=== PATIENT | female | born 1985 | race Hispanic/Latino ===

== ENCOUNTER 2019-11-08 20:46 | Inpatient (IN) | payer BC, OTHER ==
[~2019-11-08] VITALS: Ht 172.7 cm; Wt 90.7 kg
--- OUTSIDE RECORDS SUMMARY | 2019-11-08 20:49 | XMS REPORT ---
Author [facility] Address Unknown Phone Unavailable Care Team Providers Care Mat Gauger Name Role Phone Unavailable Unavailable Payers Payer Name Policy Type Policy Number Effective Date Expiration Date Problems This patient has no known problems. Allergies, Adverse Reactions, Alerts Allergy Name Allergy Type Status Severity Reaction(s) Onset Date Inactive Date Treating Clinician Comments No Known Allergies DA Active U 2015-01-13 00:00:00 Medications This patient has no known medications. Results Test Description Test Time Test Comments Text Results Atomic Results Result Comments BASIC METABOLIC PANEL 2019-11-04 10:26:00 SODIUM (test code=NA) 138 mmol/L 135-148 POTASSIUM (test code=K) 3.8 mmol/L 3.5-5.1 CHLORIDE (test code=CL) 100 mmol/L 101-109 CARBON DIOXIDE (test code=CO2) 23.5 mmol/L 21-32 ANION GAP (test code=GAP) 18 mmol/L 10-20 GLUCOSE (test code=GLU) 107 mg/dL 74-106 BLOOD UREA NITROGEN (test code=BUN) 11 mg/dL 3-21 GLOMERULAR FILTRATION RATE (test code=GFR) > 60 mL/min >=60 Estimated GFR by using Modified MDRD formula.Chronic kidney disease is defined as either kidney damageor GFR <60 mL/min/1.73 m2 for >3 months. CREATININE (test code=CREAT) 0.92 mg/dL 0.55-1.3 BUN/CREATININE RATIO (test code=BUN/CREA) 12.0 10-20 CALCIUM (test code=CA) 9.4 mg/dL 8.4-10.2 HEPATIC FUNCTION [id number] 10:26:00* Test Item Value Reference Range Comments TOTAL PROTEIN (test code=PROT) 7.8 g/dL 6.5-8.4 ALBUMIN (test code=ALB) 3.6 g/dL 3.4-4.8 GLOBULIN (test code=GLOB) 4.2 G/DL 1-10 ALBUMIN/GLOBULIN RATIO (test code=A/G) 0.9 RATIO 0.75-1.50 BILIRUBIN TOTAL (test code=BILT) 0.40 mg/dL 0.0-1.0 BILIRUBIN DIRECT (test code=BILD) 0.10 mg/dL 0.0-0.30 SGOT/AST (test code=AST) 51 U/L 6-32 SGPT/ALT (test code=ALT) 100 U/L 12-78 Note: Change in REFERENCE RANGE due to new reagent method. ALKALINE PHOSPHATASE TOTAL (test code=ALKP) 81 U/L 38-126 HCG SERUM [id number] 10:26:00* Test Item Value Reference Range Comments HCG SERUM QUAL (test code=HCGQL) NEGATIVE NEGATIVE This HCGQL test is NOT applicable for MALE patients.Check with nurse about probable order error.If Tumor Marker Test needed, nurse should order test "HCGTU"(Test #550.71903) [id number] 10:26:00* Test Item Value Reference Range Comments TROPONIN-I (test code=TROPI) <0.015 ng/mL 0.00-0.056 LACTIC [id number] 10:26:00* Test Item Value Reference Range Comments LACTIC ACID (test code=LACT) 1.0 MMOL/L 0.4-1.9 BASIC METABOLIC [id number] 10:25:00* Test Item Value Reference Range Comments SODIUM (test code=NA) 138 mmol/L 135-148 POTASSIUM (test code=K) 3.8 mmol/L 3.5-5.1 CHLORIDE (test code=CL) 100 mmol/L 101-109 CARBON DIOXIDE (test code=CO2) 23.5 mmol/L 21-32 ANION GAP (test code=GAP) 18 mmol/L 10-20 GLUCOSE (test code=GLU) 107 mg/dL 74-106 BLOOD UREA NITROGEN (test code=BUN) 11 mg/dL 3-21 GLOMERULAR FILTRATION RATE (test code=GFR) > 60 mL/min >=60 Estimated GFR by using Modified MDRD formula.Chronic kidney disease is defined as either kidney damageor GFR <60 mL/min/1.73 m2 for >3 months. CREATININE (test code=CREAT) 0.92 mg/dL 0.55-1.3 BUN/CREATININE RATIO (test code=BUN/CREA) 12.0 10-20 CALCIUM (test code=CA) 9.4 mg/dL 8.4-10.2 HEPATIC FUNCTION [id number] 10:25:00* Test Item Value Reference Range Comments TOTAL PROTEIN (test code=PROT) gram/dL 6.4-8.2 ALBUMIN (test code=ALB) g/dL 3.4-5.0 GLOBULIN (test code=GLOB) g/dL 2.7-4.2 ALBUMIN/GLOBULIN RATIO (test code=A/G) 0.75-1.50 BILIRUBIN TOTAL (test code=BILT) mg/dL 0.2-1.2 BILIRUBIN DIRECT (test code=BILD) mg/dL 0.0-0.20 SGOT/AST (test code=AST) IUnit/L 15-37 SGPT/ALT (test code=ALT) U/L 10-69 ALKALINE PHOSPHATASE TOTAL (test code=ALKP) IUnit/L 45-117 HCG SERUM [id number] 10:25:00* Test Item Value Reference Range Comments HCG SERUM QUAL (test code=HCGQL) NEGATIVE NEGATIVE This HCGQL test is NOT applicable for MALE patients.Check with nurse about probable order error.If Tumor Marker Test needed, nurse should order test "HCGTU"(Test #550.79374) [id number] 10:25:00* Test Item Value Reference Range Comments TROPONIN-I (test code=TROPI) ng/mL 0-0.045 BASIC METABOLIC [id number] 10:23:00* Test Item Value Reference Range Comments SODIUM (test code=NA) mmol/L 135-148 POTASSIUM (test code=K) mmol/L 3.5-5.1 CHLORIDE (test code=CL) mmol/L 101-109 CARBON DIOXIDE (test code=CO2) mmol/L 21-32 ANION GAP (test code=GAP) mmol/L 10-20 GLUCOSE (test code=GLU) mg/dL 74-106 BLOOD UREA NITROGEN (test code=BUN) mg/dL 3-21 GLOMERULAR FILTRATION RATE (test code=GFR) mL/min >=60 CREATININE (test code=CREAT) mg/dL 0.55-1.3 BUN/CREATININE RATIO (test code=BUN/CREA) 10-20 CALCIUM (test code=CA) mg/dL 8.4-10.2 HEPATIC FUNCTION [id number] 10:23:00* Test Item Value Reference Range Comments TOTAL PROTEIN (test code=PROT) gram/dL 6.4-8.2 ALBUMIN (test code=ALB) g/dL 3.4-5.0 GLOBULIN (test code=GLOB) g/dL 2.7-4.2 ALBUMIN/GLOBULIN RATIO (test code=A/G) 0.75-1.50 BILIRUBIN TOTAL (test code=BILT) mg/dL 0.2-1.2 BILIRUBIN DIRECT (test code=BILD) mg/dL 0.0-0.20 SGOT/AST (test code=AST) IUnit/L 15-37 SGPT/ALT (test code=ALT) U/L 10-69 ALKALINE PHOSPHATASE TOTAL (test code=ALKP) IUnit/L 45-117 HCG SERUM [id number] 10:23:00* Test Item Value Reference Range Comments HCG SERUM QUAL (test code=HCGQL) NEGATIVE NEGATIVE This HCGQL test is NOT applicable for MALE patients.Check with nurse about probable order error.If Tumor Marker Test needed, nurse should order test "HCGTU"(Test #550.94532) [id number] 10:23:00* Test Item Value Reference Range Comments TROPONIN-I (test code=TROPI) ng/mL 0-0.045 CBC W/AUTO [id number] 10:14:00* Test Item Value Reference Range Comments WHITE BLOOD CELL (test code=WBC) 4.6 K/mm3 4.5-12.5 RED BLOOD CELL (test code=RBC) 4.70 mill/mm3 3.7-5.2 HEMOGLOBIN (test code=HGB) 13.9 gram/dL 11.5-15.5 HEMATOCRIT (test code=HCT) 41.7 % 36.0-46.0 MEAN CELL VOLUME (test code=MCV) 88.7 fL 80-98 MEAN CELL HGB (test code=MCH) 29.6 picogram 27.0-33.0 MEAN CELL HGB CONCETRATION (test code=MCHC) 33.3 gram/dL 33.0-36.0 RED CELL DISTRIBUTION WIDTH (test code=RDW) 12.7 % 11.6-16.2 RED CELL DISTRIBUTION WIDTH SD (test code=RDW-SD) 42.3 fL 37.0-51.0 PLATELET COUNT (test code=PLT) 202 K/mm3 150-450 MEAN PLATELET VOLUME (test code=MPV) 10.0 fL 6.7-11.0 NEUTROPHIL % (test code=NT%) 75.7 % 39.0-69.0 LYMPHOCYTE % (test code=LY%) 15.6 % 25.0-55.0 MONOCYTE % (test code=MO%) 8.1 % 0.0-10.0 EOSINOPHIL % (test code=EO%) 0.2 % 0.0-5.0 BASOPHIL % (test code=BA%) 0.2 % 0.0-1.0 NEUTROPHIL # (test code=NT#) 3.45 K/mm3 1.8-7.7 LYMPHOCYTE # (test code=LY#) 0.71 K/mm3 1.0-5.0 MONOCYTE # (test code=MO#) 0.37 K/mm3 0-0.8 EOSINOPHIL # (test code=EO#) 0.01 K/mm3 0.0-0.5 BASOPHIL # (test code=BA#) 0.01 K/mm3 0.0-0.2 - XR CHEST 1 [id number] 10:02:00 Name: ALIX BLANCHARD [facility] : 1985 Age/S:34 /F [address] [facility] Unit#:[id number] Loc: [place] [address] Phys: Azalia Moser MD Dis Date: PHONE #: [phone] Status: REG ER FAX #: [phone] Exam Date: 11/04/2019 Reason: cough EXAMS: CPT CODE: [id number] XR CHEST 1 V 13521 HISTORY: cough TECHNIQUE: AP chest x-ray COMPARISON: 11/08/14 FINDINGS: No airspace consolidation or pleural effusion. Normal heart size. Mediastinal silhouette is unremarkable. Visualized osseous structures are grossly intact. IMPRESSION: No radiographic evidence of acute cardiopulmonary process. LOCATION: LP at 1002 Reported and signed by: Linda Townsend CC: Ama Mtz MD; Azalia Moser MD Technologist: Shivani Doty Trnscrpt Data: 11/04/2019 (1002) [email or web address] Orig Print D/T: S: (100) PAGE 1 Signed Rep ort
[2019-11-08] MEDS ORDERED: SODIUM CHLORIDE 0.9% 1000ML 1,000 ML IV STA (21:10)
[2019-11-08] MEDS ORDERED: PIPER-TAZ 3.375 GM 50 ML IV STA (21:10)
[2019-11-08] MEDS ORDERED: ACETAMINOPHEN 325 MG TAB PO ONE (21:15)
[2019-11-08] MEDS ORDERED: SODIUM CHLORIDE 0.9% 1000ML 1,000 ML IV ONE (21:30)
[2019-11-08 21:32] LABS: BASOPHILS % 0.3 % (0.0-1.0); HEMATOCRIT 38.6 % (34.2-44.1); HEMOGLOBIN 12.7 g/dL (12.0-16.0); LYMPHOCYTES # (AUTO) 0.5 (1.0-3.2); LYMPHOCYTES % 15.1 % (18.0-39.1); MEAN CORPUSCULAR HEMOGLOBIN 29.1 pg (28-32); MEAN CORPUSCULAR HGB CONC 32.9 g/dL (31-35); MEAN CORPUSCULAR VOLUME 88.3 fL (81-99); MONOCYTES # (AUTO) 0.1 (0.2-0.8); MONOCYTES % 4.1 % (4.4-11.3); NEUTROPHILS # (AUTO) 2.7 (2.1-6.9); NEUTROPHILS % 79.6 % (38.7-80.0); PLATELET COUNT 81 x10e3/uL (140-360); RED BLOOD COUNT 4.37 x10e6/uL (3.6-5.1); RED CELL DISTRIBUTION WIDTH 12.9 % (11.7-14.4)
[2019-11-08] MEDS ORDERED: SODIUM CHLORIDE 0.9% 1000ML 1,000 ML ONE (21:35)
[2019-11-08 21:53] LABS: ALANINE AMINOTRANSFERASE 258 IU/L (0-55); ALBUMIN 3.1 g/dL (3.5-5.0); ALBUMIN/GLOBULIN RATIO 0.9 (0.8-2.0); ALKALINE PHOSPHATASE 237 IU/L (40-150); ANION GAP 13.4 mmol/L (8-16); BLOOD UREA NITROGEN 12 mg/dL (7-26); BUN/CREATININE RATIO 15 (6-25); CALCIUM 8.8 mg/dL (8.4-10.2); CARBON DIOXIDE 25 mmol/L (22-29); CHLORIDE 103 mmol/L (98-107); CREATININE, SERUM 0.79 mg/dL (0.57-1.11); EST GLOMERULAR FILTRATION RATE > 60 ML/MIN (60-); GLUCOSE 127 mg/dL (74-118); POTASSIUM 3.4 mmol/L (3.5-5.1); SODIUM 138 mmol/L (136-145)
[2019-11-08 21:55] LABS: STREPTOCOCCUS GRP A ANTIGEN NEGATIVE (NEGATIVE)
[2019-11-08 22:09] LABS: INFLUENZAE A&B ANTIGEN (RAPID) NEGATIVE (NEGATIVE)
[2019-11-08 22:50] LABS: CLARITY,URINE CLOUDY (CLEAR); COLOR,URINE ORANGE (YELLOW); LEUKOCYTE ESTERASE ,URINE NEGATIVE (NEGATIVE); NITRITE,URINE NEGATIVE (NEGATIVE); PREGNANCY TEST, URINE NEGATIVE (NEGATIVE)
[2019-11-08 22:51] LABS: BILIRUBIN,URINE 3+ (NEGATIVE); KETONES,URINE NEGATIVE (NEGATIVE); PROTEIN,URINE DIPSTICK >=300 (NEGATIVE)
[2019-11-09 00:01] LABS: BACTERIA,URINE MANY /HPF; EPITHELIAL CELLS,URINE FEW /LPF; RENAL EPITHELIAL CELLS,URINE FEW; TRANSITIONAL EPI CELLS,URINE FEW; WBC,URINE (MAN) 21-50 /HPF (0-5)
--- NOTE | 2019-11-09 00:43 | Diagnostic Imaging Report ---
CT chest, abdomen and pelvis with intravenous contrast Indication: Fever, bodyaches, elevated liver enzymes, dark urine, ^cough Technique: Thin collimation axial images obtained from the thoracic inlet to the level of the pubic symphysis following the uneventful administration of 100 cc of low osmolar, nonionic intravenous contrast. RADIATION DOSE: Total DLP: 952.74 mGy*cm Estimated effective dose: (DLP x 0.015 x size factor) mSv CTDIvol has been reviewed. It is below the limits set by the Radiation Protocol Committee (RPC). Dose reduction techniques used: Automated exposure control, adjustment of the mAs and/or kVp according to patient size, standardized low-dose protocol, and/or iterative reconstruction technique. Comparison: None. CHEST FINDINGS: Lymph nodes: No enlarged axillary, supraclavicular lymph nodes. Right hilar lymph nodes are increased in number and mildly prominent, measuring up to 9 mm. No enlarged left hilar subcarinal lymph nodes. Thyroid: Visualized portions are normal. Mediastinum: No pericardial effusion. Heart and great vessels enhance normally without filling defects. The esophagus is normal. Lungs: Right Lung: Nodule or focus of infiltrate in the superior segment of the lower lobe measures 9 mm. Small focus of subsegmental atelectasis in the posterior costophrenic angle. Left Lung: Subsegmental atelectasis in the base adjacent to the diaphragm. Small amount of subsegmental atelectasis in the posterior costophrenic angle Pleura: Trace effusion the left posterior costophrenic angle. Airways: Clear. ABDOMEN FINDINGS: Liver: Normal attenuation. Focal fat deposition along the falciform ligament. Gallbladder: Present and contains a lamellated gallstone measuring 2.7 cm. The mucosal the gallbladder neck is mildly inflamed. No pericholecystic inflammation. No biliary ductal dilatation. Pancreas: Normal attenuation without mass or ductal dilatation. Spleen: Top normal in size without mass. Adrenal Glands: No evidence for mass. Kidneys: Right: Normal enhancement. No cortical mass. No hydronephrosis. Left: Normal enhancement. No cortical mass. No hydronephrosis. Lymph Nodes: No lymphadenopathy. Aorta: Normal in diameter. PELVIS FINDINGS: Bowel: Stomach: Distended with water. No mural thickening. Small Bowel: Normal in caliber with normal wall thickness. Large Bowel: Normal in caliber with normal wall thickness. Appendix: Normal appendix. Bladder: Under distended but otherwise normal. Lymph Nodes: No enlarged abdominal or retroperitoneal lymph nodes. The uterus is absent. No adnexal mass. Peritoneum/retroperitoneum: No free fluid or fluid collection. Bones: No focal osseous lesions. IMPRESSION: 1. Prominent right hilar lymph nodes and patchy areas of subsegmental atelectasis in each lung. Findings may be the sequela of a respiratory infection. No confluent infiltrates. Tiny left pleural effusion. 2. Cholelithiasis. Nonspecific hyperemia gallbladder mucosa in the neck. No definitive CT evidence of acute cholecystitis. No dilatation of the biliary tree. 3. No evidence for bowel obstruction or inflammation. Normal appendix. Signed by: Dr. Nick Good MD on 11/09/2019 12:39 AM
[2019-11-09] MEDS ORDERED: ONDANSETRON HCL INJ 2MG/ML 2ML 2 MG/ML VIAL IV PRN (01:00)
[2019-11-09] MEDS ORDERED: MORPHINE SULFATE 2 MG/ML SYR 1ML IV PRN (01:00)
[2019-11-09] MEDS: SODIUM CHLORIDE 0.9% 1000ML 1,000 ML IV SCH ×3 (02:28→18:33)
[2019-11-09] MEDS: PIPER-TAZ 3.375 GM 50 ML IV SCH ×4 (05:43→23:48)
[2019-11-09] MEDS: ACETAMINOPHEN 325 MG TAB PO PRN ×3 (05:44→19:59)
--- NOTE | 2019-11-09 06:20 | NUR ---
dr nunez paged to determine admission location.
[2019-11-09] MEDS ORDERED: IOPAMIDOL 370 MG/ML 200 ML INFUS..BTL INJ ONE (06:29)
[2019-11-09] MEDS ORDERED: SODIUM CHLORIDE 0.9% 50ML 50 ML ONE (06:30)
--- NOTE | 2019-11-09 07:08 | NUR ---
PER DR. BLOUNT, PT MAY GO TO FLOOR WITH ISOLATION - DROPLET PRECAUTIONS
--- NOTE | 2019-11-09 11:35 | Diagnostic Imaging Report ---
EXAM: Right upper quadrant abdominal ultrasound INDICATION: Right upper quadrant pain COMPARISON: CT abdomen and pelvis earlier the same day TECHNIQUE: Transverse and longitudinal images of the right upper quadrant abdomen were obtained FINDINGS: Liver: Size: 13.6 cm in the right midclavicular line, normal Appearance: Normal echogenicity, smooth contour Mass: No focal masses Gallbladder: 2.0 cm shadowing gallstone in the gallbladder. No cholecystic fluid or gallbladder distention. The gallbladder remains relatively decompressed. Negative sonographic Almanzar's sign. The bladder wall measures 4 mm. Bile Ducts: Intrahepatic Ducts: No dilatation Extrahepatic Ducts: Common bile duct measures 5 mm Pancreas: Visualized portions of the pancreatic head, neck and proximal body are normal. Kidney: The right kidney measures 10.2 cm without evidence of hydronephrosis or stone. Vessels: Aorta: Visualized portions are normal Inferior Vena Cava: Visualized portions are normal Main Portal Vein: 0.9 cm, normal size with hepatopetal flow. Free Fluid: No ascites or pleural effusion IMPRESSION: Cholelithiasis without sonographic evidence of cholecystitis. Signed by: Rosanna He MD on 11/09/2019 11:32 AM
--- NOTE | 2019-11-09 12:24 | NUR ---
PT RESTING IN BED. ACYANOTIC. NO DISTRESS NOTED. RIGHT AC IV PATENT AND SALINE LOCKED.
[2019-11-09 12:32] VITALS: BP 109/72
[2019-11-09 12:40] VITALS: BP 109/72
--- NOTE | 2019-11-09 12:54 | Consultation ---
DATE OF CONSULTATION: 11/09/2019 CHIEF COMPLAINT: The patient has fever, chills, UTI, concerned about COVID-19. HISTORY OF PRESENT ILLNESS: This patient is a very pleasant 34-year-old white female, who has a history of uterine cancer, history of chemo, history of surgery, history of radiation done several years ago, comes in with 1-week history of fever and headache. No specific urgency or frequency. No specific cough or shortness of breath, but this has happened in the middle of COVID-19 outbreak. Her white count was 3.38, so she is being a suspect. The patient is telling me that she is really doing well. She does have fever and headache. PAST MEDICAL HISTORY: As above. PAST SURGICAL HISTORY: As above. ALLERGIES: NKA. SOCIAL HISTORY: There is no smoking, drug abuse, or alcohol abuse. There is no recent visit to any big gathering or to concert. LABORATORY DATA: White count 3.38 and hemoglobin 12. Her sodium 138, potassium 3.7, creatinine 0.79 with bilirubin of 2, and AST elevated of 253. The patient had a CAT scan of the abdomen, pelvis, and the chest, which showed prominent right hilar lymph node, maybe infection cholelithiasis, no evidence of bowel obstruction. PHYSICAL EXAMINATION: GENERAL: She is currently alert, oriented, does not seem to be in acute distress. VITAL SIGNS: Stable. Currently afebrile, T-max 100.3, heart rate of 99, and respirations 18. HEENT: She is not icteric. NECK: Supple. CHEST: Clear. HEART: S1 and S2. No murmur. ABDOMEN: Soft. IMPRESSION: Fever, headache, concerned about urinary tract infection. Agree with blood cultures, urine cultures, Zosyn. Elevated liver enzymes, etiology unclear. History of malignancy. CAT scan did not reveal abnormal liver structure. Recommended to check hepatitis panel. Follow up on the CAT scan of the chest with total resolution. We will keep her on droplet isolation for time being because of the fever and the headache. COVID-19 was sent. We will follow. MD POOL Solorzano/AILYN /[id number]
[2019-11-09] MEDS: FAMOTIDINE 20 MG TAB PO SCH (16:40)
[2019-11-09 16:48] VITALS: BP 115/69
[2019-11-09 18:44] LABS: BASOPHILS % 0.3 % (0.0-1.0); HEMATOCRIT 32.6 % (34.2-44.1); HEMOGLOBIN 11.1 g/dL (12.0-16.0); LYMPHOCYTES # (AUTO) 0.8 (1.0-3.2); LYMPHOCYTES % 22.3 % (18.0-39.1); MEAN CORPUSCULAR HEMOGLOBIN 29.9 pg (28-32); MEAN CORPUSCULAR VOLUME 87.9 fL (81-99); MONOCYTES # (AUTO) 0.1 (0.2-0.8); MONOCYTES % 2.7 % (4.4-11.3); NEUTROPHILS # (AUTO) 2.8 (2.1-6.9); NEUTROPHILS % 74.4 % (38.7-80.0); PLATELET COUNT 69 x10e3/uL (140-360); RED BLOOD COUNT 3.71 x10e6/uL (3.6-5.1)
[2019-11-09 19:02] LABS: % IRON SATURATION 13 % (15-50); ALANINE AMINOTRANSFERASE 205 IU/L (0-55); ALBUMIN 2.5 g/dL (3.5-5.0); ALBUMIN/GLOBULIN RATIO 0.9 (0.8-2.0); ALKALINE PHOSPHATASE 196 IU/L (40-150); BLOOD UREA NITROGEN 5 mg/dL (7-26); BUN/CREATININE RATIO 7 (6-25); CALCIUM 7.8 mg/dL (8.4-10.2); CARBON DIOXIDE 27 mmol/L (22-29); CHLORIDE 104 mmol/L (98-107); CHOL/HDL RATIO 8.4 (3.0-3.6); CHOLESTEROL 101 MD/DL (0-199); CREATININE, SERUM 0.69 mg/dL (0.57-1.11); EST GLOMERULAR FILTRATION RATE > 60 ML/MIN (60-); GLUCOSE 107 mg/dL (74-118); HDL CHOLESTEROL 12 MG/DL (40-60); IRON 25 ug/dL (50-170); LDL CHOLESTEROL 56 MG/DL (60-130); LIPASE 28 U/L (8-78); MAGNESIUM 1.4 MG/DL (1.3-2.1); PHOSPHORUS 1.4 MG/DL (2.3-4.7); SODIUM 136 mmol/L (136-145); TOTAL IRON BINDING CAPACITY 188 ug/dL (261-478); TRANSFERRIN 134 mg/dL (180-382); TRIGLYCERIDES 163 MG/DL (0-149)
--- NOTE | 2019-11-09 19:02 | NUR ---
PT AAOX3. ACYANOTIC. RESTING IN BED. NO DISTRESS NOTED. REPORT RECEIVED BY ONCOMING NURSE.
[2019-11-09 19:22] LABS: THYROID STIMULATING HORMONE 1.151 uIU/mL (0.350-4.940)
--- NOTE | 2019-11-09 19:41 | NUR ---
Spoke to Dr. Marquez regarding +SIRS alert, temp 103.4, hr 104, bp 94/54. Tylenol was given [address] Marquez ok with giving an additional dose of Tylenol 650mg at this time.
[2019-11-09] MEDS ORDERED: ACETAMINOPHEN 325 MG TAB PO ONE (19:45)
[2019-11-09 19:49] VITALS: BP 94/54
[2019-11-09 20:00] VITALS: BP 94/54
--- NOTE | 2019-11-09 21:10 | NUR ---
Patient VS stable T 99.1, HR 98 after Tylenol administration.
[2019-11-10] VITALS (7 sets, daily range): BP systolic 89–100; BP diastolic 50–63
[2019-11-10] MEDS ORDERED: MAGNESIUM SULFATE 2GM/50ML 50 ML IV ONE (02:30)
[2019-11-10] MEDS: SODIUM CHLORIDE 0.9% 1000ML 1,000 ML IV SCH ×3 (02:41→23:11)
[2019-11-10] MEDS: ACETAMINOPHEN 325 MG TAB PO PRN ×2 (02:46→13:10)
[2019-11-10 05:28] LABS: BASOPHILS % 0.4 % (0.0-1.0); EOSINOPHILS % 0.2 % (0.0-6.0); HEMATOCRIT 31.8 % (34.2-44.1); HEMOGLOBIN 10.6 g/dL (12.0-16.0); LYMPHOCYTES # (AUTO) 1.1 (1.0-3.2); LYMPHOCYTES % 22.1 % (18.0-39.1); MEAN CORPUSCULAR HEMOGLOBIN 29.4 pg (28-32); MEAN CORPUSCULAR HGB CONC 33.3 g/dL (31-35); MEAN CORPUSCULAR VOLUME 88.3 fL (81-99); MONOCYTES # (AUTO) 0.2 (0.2-0.8); MONOCYTES % 4.8 % (4.4-11.3); NEUTROPHILS # (AUTO) 3.4 (2.1-6.9); NEUTROPHILS % 71.9 % (38.7-80.0); PLATELET COUNT 72 x10e3/uL (140-360)
[2019-11-10 05:52] LABS: ALANINE AMINOTRANSFERASE 187 IU/L (0-55); ALBUMIN 2.3 g/dL (3.5-5.0); ALBUMIN/GLOBULIN RATIO 0.9 (0.8-2.0); ALKALINE PHOSPHATASE 176 IU/L (40-150); ANION GAP 9.7 mmol/L (8-16); BLOOD UREA NITROGEN 5 mg/dL (7-26); BUN/CREATININE RATIO 8 (6-25); CALCIUM 7.4 mg/dL (8.4-10.2); CARBON DIOXIDE 25 mmol/L (22-29); CHLORIDE 106 mmol/L (98-107); CREATININE, SERUM 0.65 mg/dL (0.57-1.11); EST GLOMERULAR FILTRATION RATE > 60 ML/MIN (60-); GLUCOSE 91 mg/dL (74-118); SODIUM 138 mmol/L (136-145)
[2019-11-10 05:55] LABS: POTASSIUM 2.7 mmol/L (3.5-5.1)
[2019-11-10] MEDS ORDERED: POTASSIUM PHOSPHATE 30 MM in SODIUM CHLORIDE 0.9% 250ML 250 ML IV ONE ×2 (06:00→08:00)
[2019-11-10] MEDS ORDERED: IRON SUCROSE 100 MG in SODIUM CHLORIDE 0.9% 100 ML 100 ML IV SCH (06:00)
[2019-11-10 06:01] LABS: BILIRUBIN,URINE NEGATIVE (NEGATIVE); CLARITY,URINE CLEAR (CLEAR); COLOR,URINE YELLOW (YELLOW); KETONES,URINE 1+ (NEGATIVE); LEUKOCYTE ESTERASE ,URINE NEGATIVE (NEGATIVE); NITRITE,URINE NEGATIVE (NEGATIVE); PROTEIN,URINE DIPSTICK 1+ (NEGATIVE)
[2019-11-10 06:22] LABS: WBC,URINE (MAN) 0-5 /HPF (0-5)
[2019-11-10 06:24] LABS: BACTERIA,URINE RARE /HPF; EPITHELIAL CELLS,URINE RARE /LPF
[2019-11-10] MEDS: PIPER-TAZ 3.375 GM 50 ML IV SCH ×4 (06:31→23:12)
--- NOTE | 2019-11-10 06:46 | NUR ---
paged dr. nunez for medication for cold sores, awaiting call back.
--- NOTE | 2019-11-10 07:20 | NUR ---
ASSUMED CARE. AAOX3. ACYANOTIC. RESTING IN BED. NS AT 125 ML/HR VIA RIGHT AC IV. NO DISTRESS NOTED.
[2019-11-10 07:52] LABS: BAND NEUTROPHILS % (MANUAL) 3 %; MONOCYTES % (MANUAL) 2 % (3.4-9.0); NEUTROPHILS % (MANUAL) 84 % (40-74); PLATELET MORPHOLOGY COMMENT NORMAL; RBC MORPHOLOGY COMMENT NORMAL
[2019-11-10 07:54] LABS: LYMPHOCYTES % (MANUAL) 9 % (19-48); PLATELET ESTIMATE MODERATELY DECREASED
[2019-11-10] MEDS: ACYCLOVIR 200 MG CAP PO SCH ×3 (08:30→20:14)
[2019-11-10] MEDS: FAMOTIDINE 20 MG TAB PO SCH ×2 (08:30→15:51)
[2019-11-10 10:13] LABS: ANION GAP 8.2 mmol/L (8-16); BLOOD UREA NITROGEN 5 mg/dL (7-26); BUN/CREATININE RATIO 7 (6-25); CALCIUM 7.6 mg/dL (8.4-10.2); CARBON DIOXIDE 26 mmol/L (22-29); CHLORIDE 107 mmol/L (98-107); CREATININE, SERUM 0.67 mg/dL (0.57-1.11); EST GLOMERULAR FILTRATION RATE > 60 ML/MIN (60-); GLUCOSE 129 mg/dL (74-118); POTASSIUM 3.2 mmol/L (3.5-5.1); SODIUM 138 mmol/L (136-145)
[2019-11-10] MEDS: IRON SUCROSE 100 MG in SODIUM CHLORIDE 0.9% 100 ML 100 ML IV SCH (11:20)
[2019-11-10] MEDS ORDERED: POTASSIUM CHLORIDE 20 MEQ TAB CR PO ONE (12:15)
--- NOTE | 2019-11-10 17:02 | NUR ---
Nutrition Screen Note RD Recommendation for Physician: - Consider liberalizing diet to Regular - Continue to monitor BMP with Mg and Phos, replace low lytes as needed Plan of Care: RD following, monitoring for tolerance and adequacy Nutrition reason for involvement: Nutrition Risk Trigger Primary Diagnose(s): URI, transaminitis, SOB, fever, chills, UTI PMH: uterine cancer with chemotherapy and radiation Ht: 68 in Wt: 200 lb BMI: 30.4 kg/m2 IBW: [address] Assessment: (11/09) 34 YOF admitted for URI, SOB, fever, chills, and UTI. Pt evaluated today per MST screen, unable to enter room per current isolation precautions and PUI status. No reported wt loss on admit per H&P and currently eating well, 75% of meals. Skin intact and GI WDL. Chart reviewed. Labs and meds reviewed, lytes replaced today. Will monitor and continue to follow. Current Diet: Cardiac Malnutrition Evaluation (11/10/19) The patient does not meet criteria for a specified degree of malnutrition at this time. Will re-evaluate at follow-up as appropriate. Energy intake: Good intake upon admit, 75% of meals Weight loss: WAQAS Fat loss: unable to evaluate Muscle loss: unable to evaluate Supporting Evidence: Fluid accumulation: no documented edema Functional Status: not assessed Diet Education Needs Assessment: Diet education not indicated. Diet tolerance: tolerating po Nutrition Care Level: low Signed: Kacey Brown RD, LD, [facility]
[2019-11-10] MEDS: ASCORBIC ACID 500 MG TAB PO SCH (17:43)
[2019-11-10 18:36] LABS: CREATINE KINASE 121 IU/L (29-168)
--- NOTE | 2019-11-10 19:23 | NUR ---
AAOX3. ACYANOTIC. RESTING IN BED. NO DISTRESS NOTED. REPORT RECEIVED BY ONCOMING NURSE.
--- NOTE | 2019-11-10 21:00 | NUR ---
Spoke to Madelaine with Dr Marquez answering service to notify if negative COVID19 test. Addendum: 11/10/19 at 2105 by Ginny Gaines RN Of
[2019-11-11] VITALS (8 sets, daily range): BP systolic 106–111; BP diastolic 63–72
[2019-11-11] MEDS: SODIUM CHLORIDE 0.9% 1000ML 1,000 ML IV SCH ×3 (00:48→19:23)
[2019-11-11] MEDS: ACETAMINOPHEN 325 MG TAB PO PRN ×2 (01:30→17:24)
[2019-11-11 05:27] LABS: BASOPHILS % 0.8 % (0.0-1.0); EOSINOPHILS % 0.4 % (0.0-6.0); HEMATOCRIT 30.1 % (34.2-44.1); HEMOGLOBIN 10.1 g/dL (12.0-16.0); LYMPHOCYTES # (AUTO) 1.5 (1.0-3.2); LYMPHOCYTES % 28.4 % (18.0-39.1); MEAN CORPUSCULAR HEMOGLOBIN 29.5 pg (28-32); MEAN CORPUSCULAR HGB CONC 33.6 g/dL (31-35); MONOCYTES # (AUTO) 0.3 (0.2-0.8); MONOCYTES % 5.1 % (4.4-11.3); NEUTROPHILS # (AUTO) 3.3 (2.1-6.9); NEUTROPHILS % 62.7 % (38.7-80.0); PLATELET COUNT 104 x10e3/uL (140-360); RED BLOOD COUNT 3.42 x10e6/uL (3.6-5.1); RED CELL DISTRIBUTION WIDTH 13.2 % (11.7-14.4)
[2019-11-11] MEDS: PIPER-TAZ 3.375 GM 50 ML IV SCH ×3 (05:29→17:23)
[2019-11-11 05:43] LABS: ALANINE AMINOTRANSFERASE 224 IU/L (0-55); ALBUMIN 2.3 g/dL (3.5-5.0); ALBUMIN/GLOBULIN RATIO 0.8 (0.8-2.0); ALKALINE PHOSPHATASE 177 IU/L (40-150); ANION GAP 9.2 mmol/L (8-16); BLOOD UREA NITROGEN 5 mg/dL (7-26); BUN/CREATININE RATIO 8 (6-25); CALCIUM 7.9 mg/dL (8.4-10.2); CARBON DIOXIDE 24 mmol/L (22-29); CHLORIDE 110 mmol/L (98-107); CREATINE KINASE 113 IU/L (29-168); CREATININE, SERUM 0.64 mg/dL (0.57-1.11); EST GLOMERULAR FILTRATION RATE > 60 ML/MIN (60-); GLUCOSE 94 mg/dL (74-118); MAGNESIUM 1.9 MG/DL (1.3-2.1); POTASSIUM 3.2 mmol/L (3.5-5.1); SODIUM 140 mmol/L (136-145)
[2019-11-11 06:29] LABS: PHOSPHORUS 2.2 MG/DL (2.3-4.7)
[2019-11-11] MEDS ORDERED: POTASSIUM PHOSPHATE 20 MM in SODIUM CHLORIDE 0.9% 250ML 250 ML IV SCH (07:30)
[2019-11-11] MEDS: FAMOTIDINE 20 MG TAB PO SCH (08:24)
[2019-11-11] MEDS: ACYCLOVIR 200 MG CAP PO SCH ×3 (08:24→22:00)
[2019-11-11] MEDS: ASCORBIC ACID 500 MG TAB PO SCH ×2 (08:24→17:23)
[2019-11-11] MEDS: IRON SUCROSE 100 MG in SODIUM CHLORIDE 0.9% 100 ML 100 ML IV SCH (08:32)
--- NOTE | 2019-11-11 09:06 | NUR ---
AL WITH DR BLOUNT OFFICE HERE TO SEE PT.
[2019-11-11 12:45] LABS: BAND NEUTROPHILS % (MANUAL) 1 %; EOSINOPHILS % (MANUAL) 1 % (0-7); LYMPHOCYTES % (MANUAL) 17 % (19-48); MONOCYTES % (MANUAL) 4 % (3.4-9.0); NEUTROPHILS % (MANUAL) 75 % (40-74); PLATELET ESTIMATE SLIGHTLY DECREASED; PLATELET MORPHOLOGY COMMENT NORMAL; RBC MORPHOLOGY COMMENT NORMAL
--- NOTE | 2019-11-11 19:20 | NUR ---
report given to oncoming nurse at this time, pt stable.
[2019-11-12 01:12] VITALS: BP 106/70
[2019-11-12] MEDS: PIPER-TAZ 3.375 GM 50 ML IV SCH ×4 (01:18→17:52)
[2019-11-12 05:39] VITALS: BP 113/75
[2019-11-12 06:31] LABS: BASOPHILS % 0.4 % (0.0-1.0); EOSINOPHILS # (AUTO) 0.1 (0.0-0.4); EOSINOPHILS % 1.1 % (0.0-6.0); HEMATOCRIT 31.2 % (34.2-44.1); HEMOGLOBIN 10.2 g/dL (12.0-16.0); LYMPHOCYTES # (AUTO) 2.4 (1.0-3.2); LYMPHOCYTES % 33.1 % (18.0-39.1); MEAN CORPUSCULAR HEMOGLOBIN 29.1 pg (28-32); MEAN CORPUSCULAR HGB CONC 32.7 g/dL (31-35); MEAN CORPUSCULAR VOLUME 88.9 fL (81-99); MONOCYTES # (AUTO) 0.5 (0.2-0.8); MONOCYTES % 6.3 % (4.4-11.3); NEUTROPHILS # (AUTO) 3.9 (2.1-6.9); NEUTROPHILS % 55.2 % (38.7-80.0); PLATELET COUNT 141 x10e3/uL (140-360); RED BLOOD COUNT 3.51 x10e6/uL (3.6-5.1); RED CELL DISTRIBUTION WIDTH 13.5 % (11.7-14.4)
[2019-11-12 06:58] LABS: ALANINE AMINOTRANSFERASE 261 IU/L (0-55); ALBUMIN 2.4 g/dL (3.5-5.0); ALBUMIN/GLOBULIN RATIO 0.8 (0.8-2.0); ALKALINE PHOSPHATASE 190 IU/L (40-150); BLOOD UREA NITROGEN < 5 mg/dL (7-26); CARBON DIOXIDE 27 mmol/L (22-29); CHLORIDE 108 mmol/L (98-107); CREATININE, SERUM 0.62 mg/dL (0.57-1.11); EST GLOMERULAR FILTRATION RATE > 60 ML/MIN (60-); GLUCOSE 98 mg/dL (74-118); MAGNESIUM 1.8 MG/DL (1.3-2.1); PHOSPHORUS 2.6 MG/DL (2.3-4.7); SODIUM 142 mmol/L (136-145)
[2019-11-12 07:03] LABS: BAND NEUTROPHILS % (MANUAL) 2 %; EOSINOPHILS % (MANUAL) 1 % (0-7); LYMPHOCYTES % (MANUAL) 19 % (19-48); METAMYELOCYTES % (MANUAL) 1 % (0-0); MONOCYTES % (MANUAL) 1 % (3.4-9.0); MYELOCYTES % (MANUAL) 4 % (0-0); NEUTROPHILS % (MANUAL) 72 % (40-74); NUCLEATED RED BLOOD CELLS 1; PLATELET ESTIMATE ADEQUATE; PLATELET MORPHOLOGY COMMENT NORMAL; RBC MORPHOLOGY COMMENT NORMAL
[2019-11-12 07:04] LABS: BUN/CREATININE RATIO 8 (6-25)
[2019-11-12] MEDS ORDERED: PANTOPRAZOLE SOD 40 MG TABEC PO SCH (07:30)
[2019-11-12 07:58] VITALS: BP 119/71
[2019-11-12 08:28] VITALS: BP 119/71
[2019-11-12] MEDS: SODIUM CHLORIDE 0.9% 1000ML 1,000 ML IV SCH (08:33)
[2019-11-12] MEDS: ASCORBIC ACID 500 MG TAB PO SCH ×2 (08:35→17:52)
[2019-11-12] MEDS: ACYCLOVIR 200 MG CAP PO SCH ×2 (08:35→15:00)
[2019-11-12] MEDS: IRON SUCROSE 100 MG in SODIUM CHLORIDE 0.9% 100 ML 100 ML IV SCH (11:48)
[2019-11-12 11:54] VITALS: BP 103/75
[2019-11-12] MEDS ORDERED: ACYCLOVIR200 MG PO (15:26)
[2019-11-12] MEDS ORDERED: POTASSIUM CHLO10 ME1 PO (15:26)
[2019-11-12] MEDS ORDERED: POTASSIUM CHLORIDE 20 MEQ TAB CR PO SCH (15:45)
[2019-11-12 16:00] VITALS: BP 114/75
--- NOTE | 2019-11-12 18:06 | NUR ---
pt discharged home with prescription, pt was asked to follow up with pcp, iv site removed, no swelling no redness to site.
--- NOTE | 2019-11-12 21:43 | Discharge Summary ---
PERTINENT HISTORY AND PHYSICAL FINDINGS/CHIEF COMPLAINT: Fever, chills, UTI and concerns about COVID-19. HISTORY OF PRESENT ILLNESS: The patient is a 34-year-old female with a 1-week history of headache, fever, and chills with very yellow urine. She had been taking a 1000 mg of Tylenol and 800 mg ibuprofen per dosage about 4 times a day. She reports that her PCP Dr. Hadley (?) and told her to alternate these medications. She has been on a keto diet, but is no longer. PAST MEDICAL HISTORY: Cervical cancer, chemotherapy, radiation a few urinary tract infections, but not multiple. PAST SURGICAL HISTORY: Hysterectomy. FAMILY HISTORY: Her mother had diabetes. SOCIAL HISTORY: Rare use of tobacco, rare use of alcohol 1-2 drinks, two months ago was her most recent. ALLERGIES: NO KNOWN ALLERGIES. ADMITTING DIAGNOSES: 1. Probable acute urinary tract infection, present on arrival with fever and headache. 2. Fever without definite origin. 3. Transaminitis with unclear etiology. 4. Leukopenia and thrombocytopenia with history of cervical cancer. 5. Acute hypokalemia. 6. Possible rhabdomyolysis. DISCHARGE DIAGNOSES: 1. Probable acute urinary tract infection, present on arrival. 2. Fever of unknown origin with temperature of 103.4 at 8 p.m. on 11/09/2019. 3. Transaminitis with unclear etiology. 4. Pancytopenia with history of cervical cancer, possible immunosuppression. 5. Acute hypokalemia. 6. Acute hypophosphatemia. 7. Iron deficiency. 8. Oral blisters, possible herpes simplex type 1. HOSPITAL COURSE: Generally, her cultures came back negative. Her final urine culture that was collected on November 10, 2019 showed no growth after 36 to 48 hours. Her throat culture and sensitivity did show Staphylococcus aureus. Blood culture showed no growth after 72 hours. On admission, WBC 3.38, hemoglobin 12.7, hematocrit 38.6, and platelets 81,000. Sodium 138, potassium 3.4, BUN 12, creatinine 0.79, GFR greater than 60. Total bilirubin 2.0, AST 253, ALT 258, and alkaline phosphatase 237. Her hemoglobin A1c was 5.4%. Lactic acid was 2.0 on admission. On November 09, 2019, her phosphorus 1.4, magnesium 1.4, and potassium 3.0. Initial urinalysis was positive. Follow up urinalysis on November 09 showed 1+ protein, 1+ ketones, 8 urobilinogen, 6 to 10 rbc's. Tylenol level on November 09, 2019, was less than 3.0. She did have a barnes virus screen, which was negative or not detected. Influenza types A and B were negative. Group A strep screen was negative. Influenza 1, 2, 3 and 4 were negative. RSV negative. Rhino virus negative. Hepatitis workup was negative. She was negative for adenovirus pertussis and pneumoniae. She had a CT of the chest on admission, which showed prominent right hilar lymph nodes and patchy areas of subsegmental atelectasis in each lung. Findings may be the sequelae of a respiratory infection, cholelithiasis without cholecystitis. No evidence for bowel obstruction or inflammation. CT of the abdomen and pelvis that was done on November 09, 2019 showed prominent right hilar lymph nodes and patchy areas of subsegmental atelectasis in each lung. Gallbladder ultrasound done on November 09, 2019 showed cholelithiasis without evidence of cholecystitis. Consults included Dr. Maurice Jameson with Gastroenterology. He listed diagnoses of pancytopenia. Elevated LFTs and a history of cervical cancer status post chemotherapy. Dr. Marquez with Infectious Disease also followed. Her most recent fever was around midnight on November 10, 2019. The patient was put on droplet isolation for possible COVID and it was removed when it was ruled out. She was on IV Zosyn during her stay and IV fluids. LFTs trended down, but then returned to the previous levels. Pepcid was changed to Protonix given her thrombocytopenia. During her stay, she received electrolyte repletion with potassium phosphate and magnesium. She had 3 days of iron sucrose infusions. She received acyclovir for her circumoral blisters. She has stated that she took Valtrex at home. Physical exam is unremarkable. She had been having chills, but today on the day of discharge, she reported no chills. A very small amount of yellow phlegm. Most recent vital signs, temperature 96.9, heart rate 68, respirations 20, blood pressure 103/75, and oxygen saturation 95%. WBCs 7.09, hemoglobin 10.2, hematocrit 31.2, and platelets 141. Sodium 142, potassium 3.0, chloride 108, CO2 of 27, BUN less than 5, creatinine 0.62, estimated GFR greater than 60, glucose 98, calcium 8.0, phosphorus 2.6, magnesium 1.8. Total bilirubin 1.0, AST 231, ALT 261, alkaline phosphatase 190, total protein 5.4, albumin 2.4. Creatine kinase and CK-MB were within normal limits. The patient is to continue cardiac diet. Activity level as tolerated. Follow up with Dr. Stapleton in 1-2 weeks. Follow up with Dr. Jameson in one week. Dictated by Hernan Clarke, CRYSTAL Donnie Stapleton MD HWP/MODL /[id number]
== END 2019-11-12 17:59 | disposition home or self-care (01) | DRG 871 ==
LOC: ER 20:46 → ERHOLD 11-09 00:48 → MED/SURG2 11-09 12:28 → OBSVTOIN 11-10 10:07
PROVIDERS: ADMIT Internal Medicine; ATTEND Internal Medicine
DX: A41.9 Sepsis, unspecified organism (principal); D61.810 Antineoplastic chemotherapy induced pancytopenia; N39.0 Urinary tract infection, site not specified; M62.82 Rhabdomyolysis; E61.1 Iron deficiency; B02.9 Zoster without complications; E87.6 Hypokalemia; R74.0 Nonspecific elevation of levels of transaminase and lactic acid dehydrogenase [LDH]; T45.1X5A Adverse effect of antineoplastic and immunosuppressive drugs, initial encounter; E87.8 Other disorders of electrolyte and fluid balance, not elsewhere classified; K80.80 Other cholelithiasis without obstruction
CPT/HCPCS: 36415; 71260; 74177; 76705; 80048; 80053; 80061; 80329; 81001; 81025; 82550; 82553; 83036; 83518; 83540; 83605; 83690; 83735; 84100; 84443; 84466; 84484; 85025; 87040; 87070; 87086; 87186; 87400; 87633; 87635; 93005; 96361; 99284; G0378; J1756; J2405; J2543; J3475; J7030; J7050; Q9967

== ENCOUNTER → 2019-12-24 | Outpatient (CLI) | payer BC ==
[~2019-12-24] MED LIST: ACYCLOVIR200 MG PO; ESTRADIOL1 MG PO; POTASSIUM CHLO10 ME1 PO
--- NOTE | 2019-12-24 14:43 | Diagnostic Imaging Report ---
EXAM: US ABDOMEN COMPLETE DATE: 12/24/2019 2:02 PM INDICATION: Abdominal pain COMPARISON: Right upper quadrant ultrasound of 11/09/2019 TECHNIQUE: Transverse and longitudinal rodriguez scale and color doppler sonographic images of the upper abdomen were obtained. FINDINGS: LIVER 14.4 cm in the right midclavicular line. Normal echogenicity of the liver with normal contour, no masses. SPLEEN 10.2 cm in maximum diameter. Normal echogenicity, no masses. GALLBLADDER 1.6 cm shadowing gallstone in the fundus of the gallbladder. No gallbladder wall thickening, distension, or pericholecystic fluid. Negative reported sonographic Almanzar's sign. The gallbladder wall measures 3mm BILE DUCTS No intra nor extra-hepatic biliary dilation. Common bile duct measures 4mm PANCREAS: Visualized portions are normal. RIGHT KIDNEY: 10.6 cm Echogenicity: Normal Collecting System: No hydronephrosis Stones: None Cyst/Mass: None LEFT KIDNEY: 9.9 cm Echogenicity: Normal Collecting System: No hydronephrosis Stones: None Cyst/Mass: None VESSELS: Aorta: Visualized portions are within normal size limits Inferior Vena Cava: Visualized portions are normal Main Portal Vein: 0.9 cm, normal size with hepatopetal flow. FREE FLUID: None IMPRESSION: Cholelithiasis without sonographic evidence of cholecystitis. Signed by: Rosanna He MD on 12/24/2019 2:39 PM
== END ==
LOC: US 13:29
PROVIDERS: ATTEND Internal Medicine Gastroenterology
DX: R10.11 Right upper quadrant pain (principal)
CPT/HCPCS: 76700

== ENCOUNTER → 2019-12-27 | Day surgery (SDC) | payer BC, OTHER ==
[~2019-12-27] MED LIST changes: +FENTANYL CITRATE/PF 100MCG/2 ML INJ ONE; +GLYCOPYRROLATE INJ 0.2 MG/ML VIAL ONE; +HYOSCYAMINE 0.125 MG TAB ONE; +MIDAZOLAM HCL 2 MG/2 ML VIAL ONE; +PROPOFOL IV EMULSION 10 MG/ML 20 ML VIAL ONE
--- OUTSIDE RECORDS SUMMARY | 2019-12-27 08:00 | XMS REPORT ---
Author Author [facility] t Organization [facility] Address [address] [place] [address] Phone Unavailable Care Team Providers Care Solar Energy Specialist Name Role Phone NO, PCP PCP Unavailable EDE GASTON Attphys Unavailable ZAKIYA SUE Attphys Unavailable ZAKIYA SUE Admbebeto Unavailable Payers Payer Name Policy Type Policy Number Effective Date Expiration Date [id number] 00:[facility]00 [facility] Problems This patient has no known problems. Allergies, Adverse Reactions, Alerts Allergy Name Allergy Type Status Severity Reaction(s) Onset Date Inacti ve Date Treating Clinician Comments Source No Known Allergies DA Active U 2015-01-13 00:00:00 [facility] Medications Ordered Medication Name Filled Medication Name Start Date Stop Da te Current Medication? Ordering Clinician Indication Dosage Frequency Signature (SIG) Comments Components Source Acyclovir 200 Mg Capsule Acyclovir 200 Mg Capsule 2019-11-12 00:00:00 Yes Hernan Clarke Np 800 Three Times A Day [facility] Potassium Chloride 10 Meq Tab.er.prt Potassium Chloride 10 M eq Tab.er.prt 2019-11-12 00:00:00 Yes Hernan Clarke Np 10 Daily [facility] Procedures Procedure Date / Time Performed Performing Clinician Rehan pedroza US Gallbladder 2019[facility]11[facility]09 [facility] of chest with contrast 2019-11-08 00:00:00 Adrianna JOYNER [facility] Encounters Start Date/Time End Date/Time Encounter Type Admission Type Attendi [facility] Care Department Encounter ID Source 2019-11-10 10:07:00 2019-11-12 17:59:00 Discharged Inpatient 1 ZAKIYA SUE [facility] [id number] [facility] Results Test Description Test Time Test Comments Results Result Comments Source US ABDOMEN COMPLETE 2019-12-24 14:37:00 [place] [address] Patient Name: ALIX RADER MR #: [id number] : 1985 Age/Sex: 34/F Req #: [id number] Adm Physician: Ordered by: EDE GASTON MD Report #: [id number] Location: Room/Bed: Procedure: [id number] US/US ABDOMEN COMPLETE Exam Date: 12/24/19 Exam Time: 1402 REPORT STATUS: Signed EXAM: US ABDOMEN COMPLETE DATE: 12/24/2019 2:02 PM INDICATION: Abdominal pain COMPARISON: Right upper quadrant ultrasound of 11/09/2019 TECHNIQUE: Transverse and longitudinal rodriguez scale and color doppler sonographic images of the upper abdomen were obtained. FINDINGS: LIVER 14.4 cm in the right midclavicular line. Normal echogenicity of the liver with normal contour, no masses. SPLEEN 10.2 cm in maximum diameter. Normal echogenicity, no masses. GALLBLADDER 1.6 cm shadowing gallstone in the fundus of the gallbladder. No gallbladder wall thickening, distension, or pericholecystic fluid. Negative reported sonographic Almanzar's sign. The gallbladder wall measures 3mm BILE DUCTS No intra nor extra-hepatic biliary dilation. Common bile duct measures 4mm PANCREAS: Visualized portions are normal. RIGHT KIDNEY: 10.6 cm Echogenicity: Normal Collecting System: No hydronephrosis Stones: None Cyst/Mass: None LEFT KIDNEY: 9.9 cm Echogenicity: Normal Collecting System: No hydronephrosis Stones: None Cyst/Mass: None VESSELS: Aorta: Visualized portions are within normal size limits Inferior Vena Cava: Visualized portions are normal Main Portal Vein: 0.9 cm, normal size with hepatopetal flow. FREE FLUID: None IMPRESSION: Cholelithiasis without sonographic evidence of cholecystitis. Signed by: Lashon Malin MD on 12/24/2019 2:39 PM Dictated By: LASHON MALIN MD 1439 Transcribed By: GODFREY on 12/24/19 1439 COPY TO: EDE GASTON MD Blood Culture 2019-11-13 22:07:00 Test Item Blood Culture (test code = 83127168) NO GROWTH AFTER 5 DAYS, FINAL REPORT [facility]lam[facility] pneumoniae DNA (PCR)2019-11-12 12:03:00* Test Item Value Reference Range Interpretation Comments Chlamydia pneumoniae DNA (PCR) (test code = Chlamydia pneumoniae DNA (PCR)) NOT DETECTED NOT DETECT [facility]Influenza Type A (RT-PCR)2019-11-12 12:03:00* Test Item Value Reference Range Interpretation Comments Influenza Type A (RT-PCR) (test code = 097232551) NOT DETECTED NOT DETECT [facility]oplasma pneumoniae (PCR)2019-11-12 12:03:00* Test Item Value Reference Range Interpretation Comments Mycoplasma pneumoniae (PCR) (test code = Mycoplasma pn eumoniae (PCR)) NOT DETECTED NOT DETECT [facility]fluenza Type B (RT-PCR)2019-11-12 12:03:00* Test Item Value Reference Range Interpretation Comments Influenza Type B (RT-PCR) (test code = 939506985) NOT DETECTED NOT DETECT [facility]Respiratory Syncytial Virus (PCR) 2019-11-12 12:03:00* Test Item Value Reference Range Interpretation Comments Respiratory Syncytial Virus (PCR) (test code = 830792328) NO T DETECTED NOT DETECT [facility]Bordetella pertussis DNA (PCR)2019-11-12 12:03:00* Test Item Value Reference Range Interpretation Comments Bordetella pertussis DNA (PCR) (test code = 303744545) NOT DETEC JODI NOT DETECT [facility]ainfluenza Type 1 (PCR)2019-11-12 12:03:00* Test Item Value Reference Range Interpretation Comments Parainfluenza Type 1 (PCR) (test code = 385651337) NOT DETECTED NOT DETECT [facility]ainfluenza Type 2 (PCR)2019-11-12 12:03:00* Test Item Value Reference Range Interpretation Comments Parainfluenza Type 2 (PCR) (test code = 185047677) NOT DETECTED NOT DETECT [facility]ainfluenza Type 3 (PCR)2019-11-12 12:03:00* Test Item Value Reference Range Interpretation Comments Parainfluenza Type 3 (PCR) (test code = 608319606) NOT DETECTED NOT DETECT [facility] Type 4 (PCR)2019-11-12 12:03:00* Test Item Value Reference Range Interpretation Comments Parainfluenza Type 4 (PCR) (test code = Parainfluenza Type 4 (PCR)) NOT DETECTED NOT DETECT [facility]hinovirus (PCR)2019-11-12 12:03:00* Test Item Value Reference Range Interpretation Comments Rhinovirus (PCR) (test code = 572687576) NOT DETECTED NOT DETECT [facility] Metapneumovirus (PCR)2019-11-12 12:03:00* Test Item Value Reference Range Interpretation Comments Human Metapneumovirus (PCR) (test code = 386311142) NOT DETECTED NO T DETECT [facility]denovirus (PCR)2019-11-12 12:03:00* Test Item Value Reference Range Interpretation Comments Adenovirus (PCR) (test code = 151604831) NOT DETECTED NOT DETECT [facility]onavirus Type HKU1 (PCR)2019-11-12 12:03:00* Test Item Value Reference Range Interpretation Comments Coronavirus Type HKU1 (PCR) (test code = Coronavirus T ype HKU1 (PCR)) NOT DETECTED NOT DETECT [facility]onavirus Type NL63 (PCR)2019-11-12 12:03:00* Test Item Value Reference Range Interpretation Comments Coronavirus Type NL63 (PCR) (test code = Coronavirus T ype NL63 (PCR)) NOT DETECTED NOT DETECT [facility]onavirus Type OC43 (PCR)2019-11-12 12:03:00* Test Item Value Reference Range Interpretation Comments Coronavirus Type OC43 (PCR) (test code = Coronavirus T ype OC43 (PCR)) NOT DETECTED NOT DETECT [facility]onavirus Type 229E (PCR)2019-11-12 12:03:00* Test Item Value Reference Range Interpretation Comments Coronavirus Type 229E (PCR) (test code = Coronavirus T ype 229E (PCR)) NOT DETECTED NOT DETECT Other viruses and bacteria not targeted by this PCR panel cannot be excluded; th erefore clinical correlation and follow up of serology, culture results, and ot er molecular studies is required. The results are not intended to be used as the sole means for clinical diagnosis or patient management decisions. This sample was tested at [facility] using the [employer] Film[employer] ray Respiratory Panel. It is FDA cleared and has been verified and approved by [facility] for clinical use on nasopharyngeal swa b specimens.ALL RESPIRATORY VIRAL PANEL Testing performed at [address], [place] [address]SIBBFOK HAVE BEEN [facility]ED [facility]odium Fqinv7871-79-18 07:04:00* Test Item Value Reference Range Interpretation Comments Sodium Level (test code = 2951-2) 142 136-145 [facility]Potassium Hbjjf2889-30-77 07:04:00* Test Item Value Reference Range Interpretation Comments Potassium Level (test code = 2823-3) 3.0 3.5-5.1 [facility]Chloride Vzrtk9890-30-00 07:04:00* Test Item Value Reference Range Interpretation Comments Chloride Level (test code = 2075-0) 108 98-107 [facility]anoCarbon Dioxide Aagtw8133-43-01 07:04:00* Test Item Value Reference Range Interpretation Comments Carbon Dioxide Level (test code = 2028-9) 27 22-29 [facility]anoAnion Ggq3810-93-29 07:04:00* Test Item Value Reference Range Interpretation Comments Anion Gap (test code = 61215-3) 10.0 8-16 [facility]anoBlood Urea Zviwojvj3840-90-24 07:04:00* Test Item Value Reference Range Interpretation Comments Blood Urea Nitrogen (test code = 3094-0) < 5 7-26 [facility]anoCreatinine2020-04-03 07:04:00* Test Item Value Reference Range Interpretation Comments Creatinine (test code = 2160-0) 0.62 0.57-1.11 [facility]anoBUN/Creatinine Wisrl1971-18-20 07:04:00* Test Item Value Reference Range Interpretation Comments BUN/Creatinine Ratio (test code = 3097-3) 8 6-25 [facility] PlanoEstimat Glomerular Filtration Rate 2019-11-12 07:04:00* Test Item Value Reference Range Interpretation Comments Estimat Glomerular Filtration Rate (test code = 751890647) > 60 >60 Ranges were taken from the National Kidney Disease Education Program and the [employer] health[employer] literature.Reference ranges:60 or greater: Xjtokp87-69 ( for 3 consecutive months): Chronic kidney disease 15 or less: Kidney failureBaylor Scott & White Medical Center – PlanoGlucose Bfbgj0330-26-90 07:04:00* Test Item Value Reference Range Interpretation Comments Glucose Level (test code = JCR9462) 98 74-118 [facility]anoCalcium Pixrj0910-06-73 07:04:00* Test Item Value Reference Range Interpretation Comments Calcium Level (test code = 07477-3) 8.0 8.4-10.2 [facility]anoPhosphorus Elhbs5959-47-71 07:04:00* Test Item Value Reference Range Interpretation Comments Phosphorus Level (test code = IRF5824) 2.6 2.3-4.7 [facility]anoMagnesium Rvqfy4837-16-02 07:04:00* Test Item Value Reference Range Interpretation Comments Magnesium Level (test code = 13605-6) 1.8 1.3-2.1 [facility] PlanoTotal Ztvqrjmhj6245-60-13 07:04:00* Test Item Value Reference Range Interpretation Comments Total Bilirubin (test code = 1975-2) 1.0 0.2-1.2 [facility] PlanoAspartate Amino Transf (AST/SGOT) 2019-11-12 07:04:00* Test Item Value Reference Range Interpretation Comments Aspartate Amino Transf (AST/SGOT) (test code = Aspartate Amino Transf (AST/SGOT)) 231 5-34 [facility] PlanoAlanine Aminotransferase (ALT/SGPT) 2019-11-12 07:04:00* Test Item Value Reference Range Interpretation Comments Alanine Aminotransferase (ALT/SGPT) (test code = 1742-6) 261 0-55 [facility] PlanoTotal Mtmdidn2310-89-12 07:04:00* Test Item Value Reference Range Interpretation Comments Total Protein (test code = 2885-2) 5.4 6.5-8.1 [facility] PlanoAlbumin2020-04-03 07:04:00* Test Item Value Reference Range Interpretation Comments Albumin (test code = 1751-7) 2.4 3.5-5.0 [facility] PlanoGlobulin2020-04-03 07:04:00* Test Item Value Reference Range Interpretation Comments Globulin (test code = 03666-2) 3.0 2.3-3.5 [facility] PlanoAlbumin/Globulin Rqvrp4930-43-95 07:04:00 * Test Item Value Reference Range Interpretation Comments Albumin/Globulin Ratio (test code = 1759-0) 0.8 0.8-2.0 [facility] PlanoAlkaline Toujnrqdlfa8564-86-06 07:04:00* Test Item Value Reference Range Interpretation Comments Alkaline Phosphatase (test code = 6768-6) 190 40-150 [facility] PlanoDifferential Total Cells Counted 2019-11-12 07:03:00* Test Item Value Reference Range Interpretation Comments Differential Total Cells Counted (test code = Differen tial Total Cells Counted) 100 [facility]anoNeutrophils % (Manual)2019-11-12 07:03:00 * Test Item Value Reference Range Interpretation Comments Neutrophils % (Manual) (test code = 86229-7) 72 40-74 [facility]anoBand Neutrophils %2019-11-12 07:03:00* Test Item Value Reference Range Interpretation Comments Band Neutrophils % (test code = 764-1) 2 [facility]anoLymphocytes % (Manual)2019-11-12 07:03:00 * Test Item Value Reference Range Interpretation Comments Lymphocytes % (Manual) (test code = 737-7) 19 19-48 [facility]anoMonocytes % (Manual)2019-11-12 07:03:00* Test Item Value Reference Range Interpretation Comments Monocytes % (Manual) (test code = 744-3) 1 3.4-9.0 [facility]anoEosinophils % (Manual)2019-11-12 07:03:00 * Test Item Value Reference Range Interpretation Comments Eosinophils % (Manual) (test code = 714-6) 1 0-7 [facility]anoMetamyelocytes %2019-11-12 07:03:00* Test Item Value Reference Range Interpretation Comments Metamyelocytes % (test code = 740-1) 1 0-0 [facility]anoMyelocytes %2019-11-12 07:03:00* Test Item Value Reference Range Interpretation Comments Myelocytes % (test code = 749-2) 4 0-0 [facility] PlanoNucleated Red Blood Cdmir5454-05-22 07:03:00* Test Item Value Reference Range Interpretation Comments Nucleated Red Blood Cells (test code = 55248-2) 1 [facility] PlanoPlatelet Vrvqtwry1981-15-19 07:03:00* Test Item Value Reference Range Interpretation Comments Platelet Estimate (test code = 03116-5) ADEQUATE [facility] PlanoPlatelet Morphology Wfpfgli5276-56-17 07:03:00* Test Item Value Reference Range Interpretation Comments Platelet Morphology Comment (test code = 67740-3) NORMAL [facility] PlanoRed Cell Morphology Atvmuzb0148-62-32 07:03:00* Test Item Value Reference Range Interpretation Comments Red Cell Morphology Comment (test code = 6742-1) NORMAL [facility] PlanoWhite Blood Sepic4443-20-16 06:36:00* Test Item Value Reference Range Interpretation Comments White Blood Count (test code = 6690-2) 7.09 4.8-10.8 [facility] PlanoRed Blood Cbken7698-63-92 06:36:00* Test Item Value Reference Range Interpretation Comments Red Blood Count (test code = 789-8) 3.51 3.6-5.1 [facility]anoHemoglobin2020-04-03 06:36:00* Test Item Value Reference Range Interpretation Comments Hemoglobin (test code = 37808-9) 10.2 12.0-16.0 [facility]anoHematocrit2020-04-03 06:36:00* Test Item Value Reference Range Interpretation Comments Hematocrit (test code = 4544-3) 31.2 34.2-44.1 [facility] PlanoMean Corpuscular Ykpigl8054-49-15 06:36:00* Test Item Value Reference Range Interpretation Comments Mean Corpuscular Volume (test code = 787-2) 88.9 81-99 [facility] PlanoMean Corpuscular Mxzfrljrsr1874-14-92 06:36:00* Test Item Value Reference Range Interpretation Comments Mean Corpuscular Hemoglobin (test code = 785-6) 29.1 28-32 [facility] PlanoMean Corpuscular Hemoglobin Concent 2019-11-12 06:36:00* Test Item Value Reference Range Interpretation Comments Mean Corpuscular Hemoglobin Concent (test code = 786-4) 32.7 31-35 [facility] PlanoRed Cell Distribution Zjnen4038-65-69 06:36:00* Test Item Value Reference Range Interpretation Comments Red Cell Distribution Width (test code = 65356-0) 13.5 11.7 -14.4 [facility] PlanoPlatelet Nfkok7122-35-76 06:36:00* Test Item Value Reference Range Interpretation Comments Platelet Count (test code = 777-3) 141 140-360 [facility] PlanoNeutrophils (%) (Auto)2019-11-12 06:36:00 * Test Item Value Reference Range Interpretation Comments Neutrophils (%) (Auto) (test code = 66588-2) 55.2 38.7-80.0 [facility] PlanoLymphocytes (%) (Auto)2019-11-12 06:36:00 * Test Item Value Reference Range Interpretation Comments Lymphocytes (%) (Auto) (test code = 736-9) 33.1 18.0-39.1 [facility]anoMonocytes (%) (Auto)2019-11-12 06:36:00* Test Item Value Reference Range Interpretation Comments Monocytes (%) (Auto) (test code = 5905-5) 6.3 4.4-11.3 [facility]anoEosinophils (%) (Auto)2019-11-12 06:36:00 * Test Item Value Reference Range Interpretation Comments Eosinophils (%) (Auto) (test code = 713-8) 1.1 0.0-6.0 [facility]anoBasophils (%) (Auto)2019-11-12 06:36:00* Test Item Value Reference Range Interpretation Comments Basophils (%) (Auto) (test code = 706-2) 0.4 0.0-1.0 [facility] PlanoIM GRANULOCYTES %2019-11-12 06:36:00* Test Item Value Reference Range Interpretation Comments IM GRANULOCYTES % (test code = IM GRANULOCYTES %) 3.9 0.0- 1.0 [facility]anoNeutrophils # (Auto)2019-11-12 06:36:00* Test Item Value Reference Range Interpretation Comments Neutrophils # (Auto) (test code = 751-8) 3.9 2.1-6.9 [facility] PlanoLymphocytes # (Auto)2019-11-12 06:36:00* Test Item Value Reference Range Interpretation Comments Lymphocytes # (Auto) (test code = 69480-8) 2.4 1.0-3.2 [facility]anoMonocytes # (Auto)2019-11-12 06:36:00* Test Item Value Reference Range Interpretation Comments Monocytes # (Auto) (test code = 742-7) 0.5 0.2-0.8 [facility]anoEosinophils # (Auto)2019-11-12 06:36:00* Test Item Value Reference Range Interpretation Comments Eosinophils # (Auto) (test code = 711-2) 0.1 0.0-0.4 [facility]anoBasophils # (Auto)2019-11-12 06:36:00* Test Item Value Reference Range Interpretation Comments Basophils # (Auto) (test code = 704-7) 0.0 0.0-0.1 [facility] PlanoAbsolute Immature Granulocyte (auto 2019-11-12 06:36:00* Test Item Value Reference Range Interpretation Comments Absolute Immature Granulocyte (auto (lenny t code = Absolute Immature Granulocyte (auto) 0.28 0-0.1 [facility] PlanoReactive Zycdnsdrgin2000-77-78 12:45:00* Test Item Value Reference Range Interpretation Comments Reactive Lymphocytes (test code = 01978-4) 2 [facility] PlanoCreatine Kinase DL9922-66-27 06:21:00* Test Item Value Reference Range Interpretation Comments Creatine Kinase MB (test code = 56112-5) 0.50 0-5.0 [facility] PlanoCreatine Ylzxne8069-10-31 05:55:00* Test Item Value Reference Range Interpretation Comments Creatine Kinase (test code = 2157-6) 113 29-168 [facility] PlanoCoronavirus (PCR)2019-11-10 20:45:00* Test Item Value Reference Range Interpretation Comments Coronavirus (PCR) (test code = Coronavirus (PCR)) NOT DETECTED NOTD ETECTED SARS-COV-2 (COVID19), HIGHRISK, RT-PCRNegative results do not preclude SARS-CoV- 2 infection and should not be used as the sole basis for patient management deci sions. Negative results must be combined with clinical observations, patient his tory, and epidemiological information. Optimum specimen types and timing for pea k viral levels during infections caused by SARS-CoV-2 have not been determined. Collection of multiple specimens ot types of specimens may be necessary to detec t virus. Improper specimen collection and handling, sequence variability under p rimers/probes, or organism present below the limit of detection may lead to fals e negative results. Positive and negative predictive values of testing are highl y dependent on prevalance. False negative test results are more likely when prev alence is high.The expected result is negative (not detected).The SARS-CoV-2 lenny t is intended for the qualitative detection of nucleic acid from SARS-CoV-2 in n asopharyngeal and oropharyngeal swab samples from patients who meet COVID-19 cli nical and or epidemiological criteria. For lower respiratory tract specimens, th e assay is submitted for authoriztion by FDA under an Emergency Use Authorizatio n (EUA). Testing methodology is real time RT-PCR. If received as separate collec tion devices, nasopharygeal and oropharyngeal specimens are combined for analysi s. Additional specimens may be split to a separate accession for analysi and rep orting as this test includes a single unit of service.Test results must be corre lated with clinical presentation and evaluated in the context of other laborator y and epidemiologic data. Test performance can be affected because the epidemiol ogy and clinical spectrum of infection caused by SARS-CoV-2 is not fully known. For example, the optimum types of specimens to collect and when during the cours e of infection these specimens are most likely to contain detectable viral RNA m ay not be known.This test has not been Food and Drug Administration (FDA) cleare d or approved and has been authorized by FDA under an Emergency Use Authorizatio n (EUA). The test is only authorized for the duration of the declaration that ci rcumstances exist justifying the authorization of emergency use of in vitro diag nostic tests for detection and/or diagnosis of SARS-CoV-2 under section 564(b) o f the Act, 21 U.S.C. section 360bbb-3(b)(1), unless the authorization is termina jodi or revoked sooner. [facility] are certified under the C linical Laboratory Improvement Amendments of 1988 (CLIA), 42 U.S.C. section 263a , to perform high complexity tests.Specimen sent to [facility] and testing performed by [facility] [id number] [place] [address] [id number] Director: Alonso Hargrove M.D.CLIA # 4 [id number] Scott & [facility] – PlanoTroponin [id number] 18:45:00* Test Item Value Reference Range Interpretation Comments Troponin I (test code = 58452-6) < 0.001 0-0.300 [facility] A IgM Vjbggqla3710-61-35 08:55:00* Test Item Value Reference Range Interpretation Comments Hepatitis A IgM Antibody (test code = 15531-9) Negative Negativ e [facility] B Surface Ymiuhvw9347-44-00 08:55:00* Test Item Value Reference Range Interpretation Comments Hepatitis B Surface Antigen (test code = 5196-1) Negative Negat love [facility] B Core IgM Lwcmmtdw9952-95-35 08:55:00* Test Item Value Reference Range Interpretation Comments Hepatitis B Core IgM Antibody (test code = 83722-8) Negative Ne gative [facility] C Jyudunbx7533-09-76 08:55:00* Test Item Value Reference Range Interpretation Comments Hepatitis C Antibody (test code = 24567-2) <0.1 0.0-0.9 Negative: < 0.8 Indeterminate: 0.8 - 0.9 Positive: > 0.9 The CDC recommends that a positive HCV antibody result be followed up with a HCV Nucleic Acid Amplification test (121661).Performed at: [facility] [id number] Director: Tony Pavon MD, Phone: [phone] PlanoUrine [id number] 06:24:00* Test Item Value Reference Range Interpretation Comments Urine WBC (test code = 5821-4) 0-5 0-5 [facility] [id number] 06:24:00* Test Item Value Reference Range Interpretation Comments Urine RBC (test code = 26849-9) 6-10 0-5 [facility] Gkcdknds9970-12-71 06:24:00* Test Item Value Reference Range Interpretation Comments Urine Bacteria (test code = 52110-6) RARE NONE [facility]ano[facility]rine Epithelial [id number] 06:24:00 * Test Item Value Reference Range Interpretation Comments Urine Epithelial Cells (test code = 32902-7) RARE NONE [facility] [id number] 06:02:00* Test Item Value Reference Range Interpretation Comments Urine Color (test code = 5778-6) YELLOW YELLOW [facility] Wqktjgc9380-06-24 06:02:00* Test Item Value Reference Range Interpretation Comments Urine Clarity (test code = 32673-0) CLEAR CLEAR [facility]ano[facility] Specific [id number] 06:02:00 * Test Item Value Reference Range Interpretation Comments Urine Specific Cement (test code = 5811-5) 1.020 1.010-1.02 5 [facility] [id number] 06:02:00* Test Item Value Reference Range Interpretation Comments Urine pH (test code = 06822-6) 6 5-7 [facility] Leukocyte [id number] 06:02:00* Test Item Value Reference Range Interpretation Comments Urine Leukocyte Esterase (test code = 5799-2) NEGATIVE NEGATIVE [facility] Yigtvrt8362-07-43 06:02:00* Test Item Value Reference Range Interpretation Comments Urine Nitrite (test code = 76651-7) NEGATIVE NEGATIVE [facility] Ofugwai0849-12-96 06:02:00* Test Item Value Reference Range Interpretation Comments Urine Protein (test code = 5804-0) 1+ NEGATIVE [facility]ano[facility] Glucose (UA)2019-11-10 06:02:00* Test Item Value Reference Range Interpretation Comments Urine Glucose (UA) (test code = 2349-9) NEGATIVE NEGATIVE [facility] Uhnthnb3682-08-93 06:02:00* Test Item Value Reference Range Interpretation Comments Urine Ketones (test code = 18541-6) 1+ NEGATIVE [facility] Enuyyabicyzs7349-61-69 06:02:00* Test Item Value Reference Range Interpretation Comments Urine Urobilinogen (test code = 19837-2) 8.0 0.2-1 [facility] Udypvroez9906-87-95 06:02:00* Test Item Value Reference Range Interpretation Comments Urine Bilirubin (test code = 1978-6) NEGATIVE NEGATIVE [facility] Dfmma5681-17-77 06:02:00* Test Item Value Reference Range Interpretation Comments Urine Blood (test code = 27627-2) 1+ NEGATIVE [facility]anoAcetaminophen Etewj5385-48-61 19:36:00* Test Item Value Reference Range Interpretation Comments Acetaminophen Level (test code = 22009-6) < 3.0 10-30 [facility] PlanoThyroid Stimulating Hormone (TSH) 2019-11-09 19:24:00* Test Item Value Reference Range Interpretation Comments Thyroid Stimulating Hormone (TSH) (test code = 89625-1) 1.151 0.350-4.940 [facility]anoIron [id number] 19:11:00* Test Item Value Reference Range Interpretation Comments Iron Level (test code = 2498-4) 25 50-170 [facility] PlanoTotal Iron Binding Nkzsuokw4737-54-12 19:11:00* Test Item Value Reference Range Interpretation Comments Total Iron Binding Capacity (test code = 2500-7) 188 261-4 78 [facility] PlanoPercent Iron Ngqdudffwd6692-19-37 19:11:00* Test Item Value Reference Range Interpretation Comments Percent Iron Saturation (test code = 2502-3) 13 15-50 [facility] PlanoTransferrin2020-03-31 19:11:00* Test Item Value Reference Range Interpretation Comments Transferrin (test code = 3034-6) 134 180-382 [facility] PlanoTriglycerides Ptsla4369-74-06 19:11:00* Test Item Value Reference Range Interpretation Comments Triglycerides Level (test code = 2571-8) 163 0-149 [facility]anoCholesterol Nyage8175-13-69 19:11:00* Test Item Value Reference Range Interpretation Comments Cholesterol Level (test code = 2093-3) 101 0-199 Less than 200 mg/dL Low Qnhb498 - 239 mg/dL Borderline Qpaw401 m g/dl and greater High Risk [facility] PlanoLDL Zogmzouogre5333-85-61 19:11:00* Test Item Value Reference Range Interpretation Comments LDL Cholesterol (test code = 2089-1) 56 60-130 [facility] PlanoHDL Msqskfxjnvp3149-64-10 19:11:00* Test Item Value Reference Range Interpretation Comments HDL Cholesterol (test code = 2085-9) 12 40-60 [facility]anoCholesterol/HDL Wjvoi4691-10-79 19:11:00 * Test Item Value Reference Range Interpretation Comments Cholesterol/HDL Ratio (test code = 9830-1) 8.4 3.0-3.6 [facility] PlanoLipase2020-03-31 19:11:00* Test Item Value Reference Range Interpretation Comments Lipase (test code = 3040-3) 28 8-78 [facility] PlanoHemoglobin A1c Ibmgmef6512-59-24 19:02:00 * Test Item Value Reference Range Interpretation Comments Hemoglobin A1c Percent (test code = Hemoglobin A1c Percent) 5.4 4.0-7.0 [facility] [id number] 11:30:00 [facility] [address] [address] Patient Name: ALIX RADER MR #: [id number] : 1985 Age/Sex: 34/F Req #: [id number] Adm Physician: ZAKIYA SUE MD Ordered by: VIRGINIA KRISHNAMURTHY DO Report #: [id number] Location: [facility] Room/Bed: [place] [address] Procedure: [id number] US/U S GALLBLADDER Exam Date: 11/09/19 Exam Time: 1054 REPORT STATUS: Signed EXAM: Right upper quadrant abdominal ultrasound INDICATION: Right upper quadrant pain COMPARISON: CT abdomen and pelvis earlier the same day TECHNIQUE: Transve rse and longitudinal images of the right upper quadrant abdomen were obtained FINDINGS: Liver: Size: 13.6 cm in the right midclavicular line, no rmal Appearance: Normal echogenicity, smooth contour Mass: No focal masses Gallbladder: 2.0 cm shadowing gallstone in the gallbladder. No cholecystic fluid or gallbladder distention. The gallbladder remains relatively decompres sed. Negative sonographic Almanzar's sign. The bladder wall measures 4 mm. Bile Ducts: Intrahepatic Ducts: No dilatation Extrahepatic Ducts: Common swetha e duct measures 5 mm Pancreas: Visualized portions of the pancreatic head, n sharon and proximal body are normal. Kidney: The right kidney measures 10.2 cm without evidence of hydronephrosis or stone. Vessels: Aorta: Visualiz ed portions are normal Inferior Vena Cava: Visualized portions are normal Ma in Portal Vein: 0.9 cm, normal size with hepatopetal flow. Free Fluid: No ascites or pleural effusion IMPRESSION: Cholelithiasis without sonograph ic evidence of cholecystitis. Signed by: Lashon Malin MD on 11/09/2019 11:32 AM Dictated By: LASHON MALIN MD 31 Transcribed By: GODFREY on 11/09/191131 COPY TO: Tanisha KRISHNAMURTHY DO CT ABDOMEN/PELVIS [id number] 00:32:00 [address] [place] [address] Patient Name: ALIX RADER MR #: [id number] : 1985 Age/Sex: 34/F Req #: [id number] Adm Physician: Ordered by: VIRGINIA KRISHNAMURTHY DO Report #: [id number] Location: ER Room/Bed: Procedure: [id number] CT/CT ABDOMEN/PELVIS W Exam Date: Exam Time: REPORT STATUS: Signed CT chest, abdomen and pelvis with intravenous contrast Indication: Fever, bodyaches, elevated liver enzymes, dark urine, cough Technique: Thin collimation axial image s obtained from the thoracic inlet to the level of the pubic symphysis followi ng the uneventful administration of 100 cc of low osmolar, nonionic intravenou s contrast. RADIATION DOSE: Total DLP: 952.74 mGy*cm Rlyie mated effective dose: (DLP x 0.015 x size factor) mSv CTDIvol has been re viewed. It is below the limits set by the Radiation Protocol Committee (RPC). Dose reduction techniques used: Automated exposure control, adjustment of t he mAs and/or kVp according to patient size, standardized low-dose protocol, and/or iterative reconstruction technique. Comparison: None. CHEST FI NDINGS: Lymph nodes: No enlarged axillary, supraclavicular lymph nodes. Rig ht hilar lymph nodes are increased in number and mildly prominent, measuring u p to 9 mm. No enlarged left hilar subcarinal lymph nodes. Thyroid: Visua lized portions are normal. Mediastinum: No pericardial effusion. Heart and great vessels enhance normally without filling defects. The esophagus is nor mal. Lungs: Right Lung: Nodule or focus of infiltrate in the superior segment of the lower lobe measures 9 mm. Small focus of subsegmental atelecta sis in the posterior costophrenic angle. Left Lung: Subsegmental atelecta sis in the base adjacent to the diaphragm. Small amount of subsegmental atelec tasis in the posterior costophrenic angle Pleura: Trace effusion the left p osterior costophrenic angle. Airways: Clear. ABDOMEN FINDINGS: L iver: Normal attenuation. Focal fat deposition along the falciform ligament. Gallbladder: Present and contains a lamellated gallstone measuring 2.7 cm. The mucosal the gallbladder neck is mildly inflamed. No pericholecystic inflamm ation. No biliary ductal dilatation. Pancreas: Normal attenuation without m ass or ductal dilatation. Spleen: Top normal in size without mass. Adr enal Glands: No evidence for mass. Kidneys: Right: Normal enhancement . No cortical mass. No hydronephrosis. Left: Normal enhancement. No millicent ical mass. No hydronephrosis. Lymph Nodes: No lymphadenopathy. Aorta: Normal in diameter. PELVIS FINDINGS: Bowel: Stomach: Distended wi th water. No mural thickening. Small Bowel: Normal in caliber with normal wa ll thickness. Large Bowel: Normal in caliber with normal wall thickness. Appendix: Normal appendix. Bladder: Under distended but otherwise normal. Lymph Nodes: No enlarged abdominal or retroperitoneal lymph nodes. The uterus is absent. No adnexal mass. Peritoneum/retroperitoneum: No free flu id or fluid collection. Bones: No focal osseous lesions. IMPRESSION: 1. Prominent right hilar lymph nodes and patchy areas of subsegmental ate lectasis in each lung. Findings may be the sequela of a respiratory infection. No confluent infiltrates. Tiny left pleural effusion. 2. Cholelithiasis. Nonspecific hyperemia gallbladder mucosa in the neck. No definitive CT evidenc e of acute cholecystitis. No dilatation of the biliary tree. 3. No eviden ce for bowel obstruction or inflammation. Normal appendix. Signed by: Dr. Jose Chang MD on 11/09/2019 12:39 AM Dictated By: JULI CHANG MD Transcribed By: GODFREY on 11/09/1938 COPY TO: VIRGINIA KRISHNAMURTHY DO CT CHEST W 2019-11-09 00:32:00 [address] [place] [address] Patient Name: ALIX RADER MR #: [id number] : 1985 Age/Sex: 34/F Req #: [id number] Adm Physician: Ordered by: VIRGINIA KRISHNAMURTHY DO Report #: [id number] Location: ER Room/Bed: Procedure: [id number] CT/CT CHEST W Exam Date: Exam Time: REPORT STATUS: Signed CT chest, abdomen and pelvis with intravenous contrast Indication: Fever, bodyaches, elevated liver enz ymes, dark urine, cough Technique: Thin collimation axial images obtaine d from the thoracic inlet to the level of the pubic symphysis following the un eventful administration of 100 cc of low osmolar, nonionic intravenous contras t. RADIATION DOSE: Total DLP: 952.74 mGy*cm Estimated eff ective dose: (DLP x 0.015 x size factor) mSv CTDIvol has been reviewed. I t is below the limits set by the Radiation Protocol Committee (RPC). Dose reduction techniques used: Automated exposure control, adjustment of the mAs and/or kVp according to patient size, standardized low-dose protocol, and/or i terative reconstruction technique. Comparison: None. CHEST FINDINGS: Lymph nodes: No enlarged axillary, supraclavicular lymph nodes. Right hilar lymph nodes are increased in number and mildly prominent, measuring up to 9 mm. No enlarged left hilar subcarinal lymph nodes. Thyroid: Visualized por tions are normal. Mediastinum: No pericardial effusion. Heart and great ve ssels enhance normally without filling defects. The esophagus is normal. Lungs: Right Lung: Nodule or focus of infiltrate in the superior segment of the lower lobe measures 9 mm. Small focus of subsegmental atelectasis in th e posterior costophrenic angle. Left Lung: Subsegmental atelectasis in th e base adjacent to the diaphragm. Small amount of subsegmental atelectasis in the posterior costophrenic angle Pleura: Trace effusion the left posterior costophrenic angle. Airways: Clear. ABDOMEN FINDINGS: Liver: Nor mal attenuation. Focal fat deposition along the falciform ligament. Gallbla dder: Present and contains a lamellated gallstone measuring 2.7 cm. The mucosa l the gallbladder neck is mildly inflamed. No pericholecystic inflammation. No biliary ductal dilatation. Pancreas: Normal attenuation without mass or du ctal dilatation. Spleen: Top normal in size without mass. Adrenal Glan ds: No evidence for mass. Kidneys: Right: Normal enhancement. No cor tical mass. No hydronephrosis. Left: Normal enhancement. No cortical mass . No hydronephrosis. Lymph Nodes: No lymphadenopathy. Aorta: Normal i n diameter. PELVIS FINDINGS: Bowel: Stomach: Distended with water. No mural thickening. Small Bowel: Normal in caliber with normal wall thickn ess. Large Bowel: Normal in caliber with normal wall thickness. Appendix : Normal appendix. Bladder: Under distended but otherwise normal. Lymp h Nodes: No enlarged abdominal or retroperitoneal lymph nodes. The uterus i s absent. No adnexal mass. Peritoneum/retroperitoneum: No free fluid or flu id collection. Bones: No focal osseous lesions. IMPRESSION: 1. P rominent right hilar lymph nodes and patchy areas of subsegmental atelectasis in each lung. Findings may be the sequela of a respiratory infection. No confl uent infiltrates. Tiny left pleural effusion. 2. Cholelithiasis. Nonspecif ic hyperemia gallbladder mucosa in the neck. No definitive CT evidence of acut e cholecystitis. No dilatation of the biliary tree. 3. No evidence for parveen wel obstruction or inflammation. Normal appendix. Signed by: Dr. Juli Chang MD on 11/09/2019 12:39 AM Dictated By: JULI CHANG MD Elec tronically Signed By: JULI CHANG MD on 11/09/1938 Transcribed By: TAMMY KRISHNAMURTHY on 11/09/1938 COPY TO: VIRGINIA KRISHNAMURTHY DO Urine Transitional Epithelial [id number] 00:02:00* Test Item Value Reference Range Interpretation Comments Urine Transitional Epithelial Cells (test code = 8249-5) FEW NONE [facility] Renal Epithelial [id number] 00:02:00* Test Item Value Reference Range Interpretation Comments Urine Renal Epithelial Cells (test code = 00221-2) FEW NON E [facility]ano[facility] Coarse Granular [id number] 00:02:00* Test Item Value Reference Range Interpretation Comments Urine Coarse Granular Casts (test code = 31829-3) 1-5 >0 [facility] [id number] 22:51:00* Test Item Value Reference Range Interpretation Comments Urine Test (test code = 2106-3) NEGATIVE NEGATIVE [facility] PlanoInfluenza Virus Types A,B Antigen 2019-11-08 22:09:00* Test Item Value Reference Range Interpretation Comments Influenza Virus Types A,B Antigen (test code = 98023-9) NEGATIVE NEGATIVE [facility] PlanoGroup A Streptococcus [id number] 21:55:00* Test Item Value Reference Range Interpretation Comments Group A Streptococcus Screen (test code = 61117-8) NEGATIVE NEG ATIVE [facility] PlanoLactic Acid [id number] 21:54:00* Test Item Value Reference Range Interpretation Comments Lactic Acid Level (test code = Lactic Acid Level) 2.0 0.5- 2.0 [facility] PlanoBASIC METABOLIC [id number] 10:26:00 * Test Item Value Reference Range Interpretation Comments SODIUM (test code = NA) 138 mmol/L 135-148 N POTASSIUM (test code = K) 3.8 mmol/L 3.5-5.1 N CHLORIDE (test code = CL) 100 mmol/L 101-109 L CARBON DIOXIDE (test code = CO2) 23.5 mmol/L 21-32 N ANION GAP (test code = GAP) 18 mmol/L 10-20 N GLUCOSE (test code = GLU) 107 mg/dL 74-106 H BLOOD UREA NITROGEN (test code = BUN) 11 mg/dL 3-21 N GLOMERULAR FILTRATION RATE (test code = GFR) > 60 mL/min >=60 Estimated GFR by using Modified MDRD formula.Chronic kidney disease is defined as either kidney damageor GFR <60 mL/min/1.73 m2 for >3 months. CREATININE (test code = CREAT) 0.92 mg/dL 0.55-1.3 N BUN/CREATININE RATIO (test code = BUN/CREA) 12.0 10-20 N CALCIUM (test code = CA) 9.4 mg/dL 8.4-10.2 N HEPATIC FUNCTION [id number] 10:26:00* Test Item Value Reference Range Interpretation Comments TOTAL PROTEIN (test code = PROT) 7.8 g/dL 6.5-8.4 N ALBUMIN (test code = ALB) 3.6 g/dL 3.4-4.8 N GLOBULIN (test code = GLOB) 4.2 G/DL 1-10 N ALBUMIN/GLOBULIN RATIO (test code = A/G) 0.9 RATIO 0.75-1.50 N BILIRUBIN TOTAL (test code = BILT) 0.40 mg/dL 0.0-1.0 N BILIRUBIN DIRECT (test code = BILD) 0.10 mg/dL 0.0-0.30 N SGOT/AST (test code = AST) 51 U/L 6-32 H SGPT/ALT (test code = ALT) 100 U/L 12-78 H N ote: Change in REFERENCE RANGE due to new reagent method. ALKALINE PHOSPHATASE TOTAL (test code = ALKP) 81 U/L 38-126 N HCG SERUM [id number] 10:26:00* Test Item Value Reference Range Interpretation Comments HCG SERUM QUAL (test code = HCGQL) NEGATIVE NEGATIVE This HCGQL test is NOT applicable for MALE patients.Check with nurse about probable order error.If Tumor Marker Test needed, nurse should order test "HCGTU"(Test #550.04285) [id number] 10:26:00* Test Item Value Reference Range Interpretation Comments TROPONIN-I (test code = TROPI) <0.015 ng/mL 0.00-0.056 N LACTIC [id number] 10:26:00* Test Item Value Reference Range Interpretation Comments LACTIC ACID (test code = LACT) 1.0 MMOL/L 0.4-1.9 N BASIC METABOLIC [id number] 10:25:00* Test Item Value Reference Range Interpretation Comments SODIUM (test code = NA) 138 mmol/L 135-148 N POTASSIUM (test code = K) 3.8 mmol/L 3.5-5.1 N CHLORIDE (test code = CL) 100 mmol/L 101-109 L CARBON DIOXIDE (test code = CO2) 23.5 mmol/L 21-32 N ANION GAP (test code = GAP) 18 mmol/L 10-20 N GLUCOSE (test code = GLU) 107 mg/dL 74-106 H BLOOD UREA NITROGEN (test code = BUN) 11 mg/dL 3-21 N GLOMERULAR FILTRATION RATE (test code = GFR) > 60 mL/min >=60 Estimated GFR by using Modified MDRD formula.Chronic kidney disease is defined as either kidney damageor GFR <60 mL/min/1.73 m2 for >3 months. CREATININE (test code = CREAT) 0.92 mg/dL 0.55-1.3 N BUN/CREATININE RATIO (test code = BUN/CREA) 12.0 10-20 N CALCIUM (test code = CA) 9.4 mg/dL 8.4-10.2 N HEPATIC FUNCTION [id number] 10:25:00* Test Item Value Reference Range Interpretation Comments TOTAL PROTEIN (test code = PROT) gram/dL 6.4-8.2 ALBUMIN (test code = ALB) g/dL 3.4-5.0 GLOBULIN (test code = GLOB) g/dL 2.7-4.2 ALBUMIN/GLOBULIN RATIO (test code = A/G) 0.75-1.50 BILIRUBIN TOTAL (test code = BILT) mg/dL 0.2-1.2 BILIRUBIN DIRECT (test code = BILD) mg/dL 0.0-0.20 SGOT/AST (test code = AST) IUnit/L 15-37 SGPT/ALT (test code = ALT) U/L 10-69 ALKALINE PHOSPHATASE TOTAL (test code = ALKP) IUnit/L 45-117 HCG SERUM [id number] 10:25:00* Test Item Value Reference Range Interpretation Comments HCG SERUM QUAL (test code = HCGQL) NEGATIVE NEGATIVE This HCGQL test is NOT applicable for MALE patients.Check with nurse about probable order error.If Tumor Marker Test needed, nurse should order test "HCGTU"(Test #550.49821) [id number] 10:25:00* Test Item Value Reference Range Interpretation Comments TROPONIN-I (test code = TROPI) ng/mL 0-0.045 BASIC METABOLIC [id number] 10:23:00* Test Item Value Reference Range Interpretation Comments SODIUM (test code = NA) mmol/L 135-148 POTASSIUM (test code = K) mmol/L 3.5-5.1 CHLORIDE (test code = CL) mmol/L 101-109 CARBON DIOXIDE (test code = CO2) mmol/L 21-32 ANION GAP (test code = GAP) mmol/L 10-20 GLUCOSE (test code = GLU) mg/dL 74-106 BLOOD UREA NITROGEN (test code = BUN) mg/dL 3-21 GLOMERULAR FILTRATION RATE (test code = GFR) mL/min >=60 CREATININE (test code = CREAT) mg/dL 0.55-1.3 BUN/CREATININE RATIO (test code = BUN/CREA) 10-20 CALCIUM (test code = CA) mg/dL 8.4-10.2 HEPATIC FUNCTION [id number] 10:23:00* Test Item Value Reference Range Interpretation Comments TOTAL PROTEIN (test code = PROT) gram/dL 6.4-8.2 ALBUMIN (test code = ALB) g/dL 3.4-5.0 GLOBULIN (test code = GLOB) g/dL 2.7-4.2 ALBUMIN/GLOBULIN RATIO (test code = A/G) 0.75-1.50 BILIRUBIN TOTAL (test code = BILT) mg/dL 0.2-1.2 BILIRUBIN DIRECT (test code = BILD) mg/dL 0.0-0.20 SGOT/AST (test code = AST) IUnit/L 15-37 SGPT/ALT (test code = ALT) U/L 10-69 ALKALINE PHOSPHATASE TOTAL (test code = ALKP) IUnit/L 45-117 HCG SERUM [id number] 10:23:00* Test Item Value Reference Range Interpretation Comments HCG SERUM QUAL (test code = HCGQL) NEGATIVE NEGATIVE This HCGQL test is NOT applicable for MALE patients.Check with nurse about probable order error.If Tumor Marker Test needed, nurse should order test "HCGTU"(Test #550.88266) [id number] 10:23:00* Test Item Value Reference Range Interpretation Comments TROPONIN-I (test code = TROPI) ng/mL 0-0.045 CBC W/AUTO [id number] 10:14:00* Test Item Value Reference Range Interpretation Comments WHITE BLOOD CELL (test code = WBC) 4.6 K/mm3 4.5-12.5 N RED BLOOD CELL (test code = RBC) 4.70 mill/mm3 3.7-5.2 N HEMOGLOBIN (test code = HGB) 13.9 gram/dL 11.5-15.5 N HEMATOCRIT (test code = HCT) 41.7 % 36.0-46.0 N MEAN CELL VOLUME (test code = MCV) 88.7 fL 80-98 N MEAN CELL HGB (test code = MCH) 29.6 picogram 27.0-33.0 N MEAN CELL HGB CONCETRATION (test code = MCHC) 33.3 gram/dL 33.0-36. 0 N RED CELL DISTRIBUTION WIDTH (test code = RDW) 12.7 % 11.6-16. 2 N RED CELL DISTRIBUTION WIDTH SD (test code = RDW-SD) 42.3 fL 37 .0-51.0 N PLATELET COUNT (test code = PLT) 202 K/mm3 150-450 N MEAN PLATELET VOLUME (test code = MPV) 10.0 fL 6.7-11.0 N NEUTROPHIL % (test code = NT%) 75.7 % 39.0-69.0 H LYMPHOCYTE % (test code = LY%) 15.6 % 25.0-55.0 L MONOCYTE % (test code = MO%) 8.1 % 0.0-10.0 N EOSINOPHIL % (test code = EO%) 0.2 % 0.0-5.0 N BASOPHIL % (test code = BA%) 0.2 % 0.0-1.0 N NEUTROPHIL # (test code = NT#) 3.45 K/mm3 1.8-7.7 N LYMPHOCYTE # (test code = LY#) 0.71 K/mm3 1.0-5.0 L MONOCYTE # (test code = MO#) 0.37 K/mm3 0-0.8 N EOSINOPHIL # (test code = EO#) 0.01 K/mm3 0.0-0.5 N BASOPHIL # (test code = BA#) 0.01 K/mm3 0.0-0.2 N - XR CHEST 1 [id number] 10:02:00 Name: ALIX BLANCHARD [facility] : 1985 Age/S:34 /F [address] [facility] Unit#:[id number] [place]: [place] [address] Phys: Azalia Moser MD Dis Date: PHONE #: [phone] Status: REG ER FAX #: [phone] Exam Date: 11/04/2019 Reason: cough EXAMS: CPT CODE: [id number] XR CHEST 1 V [id number] HISTORY: cough TECHNIQUE: AP chest x-ray COMPARISON: 11/08/14 FINDINGS: No airspace consolidation or pleural effusion. Normal heart size. Mediastinal silhouette is unremarkable. Visualized osseous structures are grossly intact. IMPRESSION: No radiographic evidence of acute cardiopulmonary process. LOCATION: LP at 1002 Reported and signed by: Linda Townsend CC: Ama Mtz MD; Azalia Moser MD Technologist: Shivani Doty Trnscrpt Data: 11/04/2019 ([id number] Orig Print D/T: S: ([id number]) PAGE 1 Signed Rep ort
[2019-12-27 11:25] VITALS: BP 119/85
--- NOTE | 2019-12-27 13:35 | Operative Report ---
DATE OF PROCEDURE: 12/27/2019 SURGEON: Maurice Jameson MD PROCEDURE: Colonoscopy with biopsies. INDICATIONS FOR COLONOSCOPY: Crampy lower abdominal pain, diarrhea, fecal urgency, and history of radiation therapy for cervical cancer. MEDICATIONS: The patient was done under MAC, please see anesthesiologist's note. PROCEDURE IN DETAIL: With the patient in the left lateral decubitus position, a flexible fiberoptic Olympus colonoscope was inserted into the rectum with ease and advanced all the way to the cecum. Mucosa overlying the cecum appeared to be within normal limits. The ileocecal valve was intubated and the scope was advanced from the ileum. Biopsies were obtained. The scope was then withdrawn back into the colon. It was then withdrawn slowly. Mucosa overlying the ascending and the transverse as well as the descending appeared to be within normal limits. Patchy erythema and low grade to moderate edema were manifested by the mucosa of the sigmoid as well as the rectum, and multiple random biopsies were obtained. The sigmoid was somewhat fixed and hard to negotiate and was suboptimally visualized. There were some telangiectasia noted in the rectum, most likely they are radiation telangiectasias. The scope was then retroflexed into the distal rectum and small internal hemorrhoids were noted, none of which was actively bleeding. The scope was then straightened out, it was subsequently withdrawn, and the patient tolerated the procedure well. IMPRESSION: 1. Sigmoiditis, mild, biopsies obtained. 2. Radiation proctitis, biopsies obtained. 3. Internal hemorrhoids, none actively bleeding. PLAN: Follow up histology. Follow up stool studies. Check IBD panel, CRP, and sedimentation rate. Initiate Bentyl 10 mg one p.o. t.i.d. and Canasa suppositories 1000 mg at bedtime, #30. Maurice Jameson MD [facility] [place]/[facility] /[id number] cc: Donnie Stapleton MD
[2019-12-27 15:28] LABS: C DIFFICILE TOXIN A&B AMP PROB NEGATIVE (NEGATIVE); WBC,FECAL (FECAL LACTOFERRIN) NEGATIVE (NEGATIVE)
== END | disposition home or self-care (01) ==
LOC: OR 07:53
PROVIDERS: ATTEND Internal Medicine Gastroenterology
DX: K52.9 Noninfective gastroenteritis and colitis, unspecified (principal); K62.7 Radiation proctitis; K64.8 Other hemorrhoids; F17.200 Nicotine dependence, unspecified, uncomplicated; F19.21 Other psychoactive substance dependence, in remission; R79.89 Other specified abnormal findings of blood chemistry; D50.9 Iron deficiency anemia, unspecified; K59.09 Other constipation; R63.4 Abnormal weight loss; Z01.812 Encounter for preprocedural laboratory examination; Z11.59 Encounter for screening for other viral diseases; Z68.32 Body mass index [BMI] 32.0-32.9, adult; Z85.41 Personal history of malignant neoplasm of cervix uteri; Z92.21 Personal history of antineoplastic chemotherapy; Z80.0 Family history of malignant neoplasm of digestive organs
CPT/HCPCS: 36415; 45380; 83630; 83993; 85651; 86140; 86256; 86671; 87045; 87177; 87328; 87493; 87635; J2250; J2704; J3010; 45378

== ENCOUNTER 2021-05-09 17:39 | Emergency (ER) | payer BC ==
[~2021-05-09] VITALS: Ht 172.7 cm; Wt 90.7 kg
[~2021-05-09 17:39] MED LIST changes: -FENTANYL CITRATE/PF 100MCG/2 ML INJ ONE; -GLYCOPYRROLATE INJ 0.2 MG/ML VIAL ONE; -HYOSCYAMINE 0.125 MG TAB ONE; -MIDAZOLAM HCL 2 MG/2 ML VIAL ONE; -PROPOFOL IV EMULSION 10 MG/ML 20 ML VIAL ONE
[2021-05-09] MEDS ORDERED: KETOROLAC TROMETHAMINE 60 MG/2 ML VIAL IM ONE (18:45)
[2021-05-09] MEDS ORDERED: DEXAMETHASONE SOD PHOS 10 MG/1 ML VIAL IM ONE (18:45)
[2021-05-09 20:47] VITALS: BP 111/80
== END 2021-05-09 20:48 | disposition home or self-care (01) ==
LOC: ER 19:33
DX: M54.32 Sciatica, left side (principal); M54.5 Low back pain; M41.9 Scoliosis, unspecified; Z85.41 Personal history of malignant neoplasm of cervix uteri
CPT/HCPCS: 72100; 99284; J1100; J1885

== ENCOUNTER 2022-11-06 20:46 | Emergency (ER) | payer BC ==
[~2022-11-06] VITALS: Ht 172.7 cm; Wt 90.7 kg
[2022-11-06 21:27] LABS: BASOPHILS % 0.3 % (0.0-1.0); EOSINOPHILS # (AUTO) 0.2 (0.0-0.4); EOSINOPHILS % 2.2 % (0.0-6.0); HEMOGLOBIN 13.9 g/dL (12.0-16.0); LYMPHOCYTES # (AUTO) 0.7 (1.0-3.2); LYMPHOCYTES % 7.7 % (18.0-39.1); MEAN CORPUSCULAR HEMOGLOBIN 29.8 pg (28-32); MEAN CORPUSCULAR HGB CONC 32.3 g/dL (31-35); MEAN CORPUSCULAR VOLUME 92.3 fL (81-99); MONOCYTES # (AUTO) 0.3 (0.2-0.8); MONOCYTES % 3.3 % (4.4-11.3); NEUTROPHILS # (AUTO) 7.9 (2.1-6.9); NEUTROPHILS % 86.1 % (38.7-80.0); PLATELET COUNT 237 x10e3/uL (140-360); RED BLOOD COUNT 4.66 x10e6/uL (3.6-5.1); RED CELL DISTRIBUTION WIDTH 13.7 % (11.7-14.4)
[2022-11-06 21:31] LABS: CLARITY,URINE CLEAR (CLEAR); COLOR,URINE YELLOW (YELLOW); KETONES,URINE 2+ (NEGATIVE); LEUKOCYTE ESTERASE ,URINE NEGATIVE (NEGATIVE); NITRITE,URINE NEGATIVE (NEGATIVE); PROTEIN,URINE DIPSTICK NEGATIVE (NEGATIVE); URINE UROBILINOGEN 0.2 mg/dL (0.2 - 1)
[2022-11-06 21:40] LABS: BACTERIA,URINE MODERATE /HPF; EPITHELIAL CELLS,URINE FEW /LPF; RBC,URINE 0-5 /HPF (0-5); WBC,URINE (MAN) 0-5 /HPF (0-5)
[2022-11-06 21:43] LABS: ALBUMIN 4.1 g/dL (3.5-5.0); ANION GAP 15.6 mmol/L (8-16); CALCIUM 10.1 mg/dL (8.4-10.2); CREATININE, SERUM 0.79 mg/dL (0.57-1.11); POTASSIUM 3.6 mmol/L (3.5-5.1)
[2022-11-07] MEDS ORDERED: IOPAMIDOL 370 MG/ML 100 ML INFUS..BTL INJ ONE (03:24)
== END 2022-11-07 01:16 | disposition home or self-care (01) ==
LOC: ER 20:58
DX: R10.13 Epigastric pain (principal); K80.20 Calculus of gallbladder without cholecystitis without obstruction; R11.2 Nausea with vomiting, unspecified; Z85.41 Personal history of malignant neoplasm of cervix uteri
CPT/HCPCS: 36415; 74177; 80053; 81001; 83690; 85025; 99284; Q9967